=== PATIENT | male | born 1945 | race Caucasian/White ===

== ENCOUNTER 2019-10-17 09:59 | Inpatient (IN) | payer MEDICARE, OTHER, SELFPAY ==
[2019-10-17] VITALS (29 sets, daily range): BP systolic 80–128; BP diastolic 63–99; PULSE 68–94; RESP 18–39; TEMP 36.1–37.2; O2SAT 58–100
--- NOTE | ~2019-10-17 | US_ITS ---
EXAMINATION: US carotid duplex BI DATE: 10/18/2019 17:16 INDICATION: Syncope. TECHNIQUE: Grayscale, color Doppler, and pulsed Doppler images of the cervical carotid arteries were obtained. The degree of vessel stenosis is placed in one of the following categories: normal, <50%, 5 0-69%, >=70% but less than near-occlusion, near-occlusion, or total occlusion. Note that percent sten osis relative to normal distal artery lumen diameter is indirectly measured from velocity measurement s as described by Rodo, et al. Radiology 2003; 229:340-346. COMPARISON: None. FINDINGS: Cardiac arrhythmia is present. RIGHT: The right common carotid artery (CCA) peak systolic velocity (PSV) is 93 cm/s. The right internal car otid artery (ICA) PSV is 56 cm/s. The right ICA end-diastolic velocity (EDV) is 12 cm/s. The right IC A/CCA PSV ratio is 0.6. Grayscale and color Doppler images yield an estimate of <50% diameter reducti on from minimal plaque in the ICA. The external carotid artery (ECA) PSV is 75 cm/s. There is antegra de flow in the right vertebral artery. LEFT: The left CCA PSV is 79 cm/s. The left ICA PSV is 57 cm/s. The left ICA EDV is 16 cm/s. The left ICA/C CA PSV ratio is 0.7. Grayscale and color Doppler images yield an estimate of <50% diameter reduction from minimal plaque in the ICA. The ECA PSV is 113 cm/s. There is antegrade flow in the left vertebra l artery. IMPRESSION: 1. <50% stenosis in the right internal carotid artery. 2. <50% stenosis in the left internal carotid artery. 3. Cardiac arrhythmia is present. Correlate with EKG. Reviewed, dictated and finalized at location A.
--- NOTE | ~2019-10-17 | XR_ITS ---
EXAMINATION: XR chest 1V portable DATE: 10/17/2019 10:34 INDICATION: Shortness of breath. TECHNIQUE: A single frontal view of the chest was obtained. COMPARISON: Chest 2 views 06/27/2018 FINDINGS: Lung volumes are small, which is chronic. There is a diffuse coarse interstitial pattern in the lungs, left worse than right. No pleural effusion or pneumothorax. The heart size is normal. IMPRESSION: 1. Worsened diffuse lung disease, likely chronic interstitial lung disease with superimposed findings of acute exacerbation versus pulmonary edema or pneumonia. Reviewed, dictated and finalized at location A. IMPRESSION: 1. Worsened diffuse lung disease, likely chronic interstitial lung disease with superimposed findings of acute exacerbation versus pulmonary edema or pneumoni a.
--- NOTE | ~2019-10-17 | CT_ITS ---
EXAMINATION: CTA chest DATE: 10/18/2019 17:33 INDICATION: Hypoxia TECHNIQUE: Computed tomographic angiography (CTA) of the chest was performed without and with 100 mL Omnipaque-350 intravenous contrast. Volume-rendered 3D-reconstructions of the aorta and large arterie s were constructed by the technologist on a separate workstation. The dose-length product was 988 mGy -cm. COMPARISON: Chest radiograph dated 10/17/2019 and 06/27/2018 FINDINGS: Good contrast opacification of the pulmonary arteries. There is streak artifact from dense contrast i n the superior vena cava as well as mild to moderate respiratory motion artifact which limits sensiti vity for assessment of pulmonary embolism in the smaller subsegmental pulmonary arteries. No pulmonar y embolism. Chronically small lung volumes with coarse irregular interstitial pattern with peripheral and basilar predominance. There is also diffuse bronchiectasis throughout both lungs. Diffuse ground glass opacities throughout both lungs with a few small regions of more lucent subsegmental air trappi ng related to small airway disease. Tiny bilateral pleural effusions along the major fissures. Mild c ardiomegaly. Thoracic aorta is normal in caliber with no dissection. Enlargement of the central pulmo nary arteries consistent with pulmonary arterial hypertension. Right hilar and mediastinal lymphadeno rajni which is likely reactive. 5.9 cm right renal cyst. Severe lower cervical and lower thoracic spo ndylosis. Chronic anterior wedging with 20% anterior vertebral body height loss at T7 and T8. IMPRESSION: 1. No pulmonary embolism. 2. Chronic diffuse bilateral lung disease with bronchiectasis and decreased lung volumes which could represent chronic interstitial lung disease with usual interstitial pneumonia (UIP) or nonspecific in terstitial pneumonia (NSIP) pattern. Superimposed pulmonary edema or less likely pneumonia not exclud able. 3. Cardiomegaly and enlarged central pulmonary arteries, the latter consistent with pulmonary hyperte nsion likely related to chronic interstitial lung disease. 4. Likely reactive mild mediastinal and bilateral hilar lymphadenopathy. Reviewed, dictated and finalized at location A. IMPRESSION: 1. No pulmonary embolism. 2. Chronic diffuse bilateral lung disease with bronchiectasis and decreased josee g volumes which could represent chronic interstitial lung disease with usual in terstitial pneumonia (UIP) or nonspecific interstitial pneumonia (NSIP) pattern . Superimposed pulmonary edema or less likely pneumonia not excludable. 3. Cardiomegaly and enlarged central pulmonary arteries, the latter consistent with pulmonary hypertension likely related to chronic interstitial lung disease . 4. Likely reactive mild mediastinal and bilateral hilar lymphadenopathy.
--- NOTE | ~2019-10-17 | US_ITS ---
EXAMINATION: US venous doppler [facility] DATE: 10/17/2019 16:09 INDICATION: Lower limb swelling and erythema. TECHNIQUE: Grayscale ultrasound images without and with compression and Doppler ultrasound images of the bilateral lower extremity veins were obtained. COMPARISON: None. FINDINGS: The visualized portions of right common femoral vein, profunda (deep) femoral vein, femoral vein, pop liteal vein, posterior tibial veins, peroneal veins, gastrocnemius vein and greater saphenous vein ou tflow are patent. The visualized portions of left common femoral vein, profunda femoral vein, femoral vein, popliteal v ein, posterior tibial veins, peroneal veins, gastrocnemius vein and greater saphenous vein outflow ar e patent. IMPRESSION: 1. No deep venous thrombosis in either lower limb. Reviewed, dictated and finalized at location A.
--- NOTE | ~2019-10-17 | XR_ITS ---
XR chest 1V portable 10/23/2019 13:47 Indication: Shortness of breath. Procedure: AP portable chest Comparison: Comparison to multiple prior studies sequentially, with oldest reviewed study dated 06/27. Findings: Extensive mixed interstitial and airspace disease unchanged. Stable cardiomediastinal silho uette. No pleural effusion or pneumothorax. No acute osseous abnormality. Impression: 1: Stable extensive mixed interstitial and airspace disease dating back to 06/27/2018. Findings most c ompatible with chronic interstitial fibrosis with possible superimposed chronic interstitial edema or atypical pneumonia. Reviewed, dictated and finalized at location A. Impression: 1: Stable extensive mixed interstitial and airspace disease dating back to 06/27. Findings most compatible with chronic interstitial fibrosis with possibl e superimposed chronic interstitial edema or atypical pneumonia.
--- NOTE | ~2019-10-17 | US_ITS ---
EXAMINATION: US abdomen limited DATE: 10/25/2019 08:08 INDICATION: Splenomegaly TECHNIQUE: Multiple grayscale and Doppler ultrasound images of the left upper quadrant of the abdomen were obtained. COMPARISON: None FINDINGS/IMPRESSION: Normal spleen measuring 7.3 cm in maximal length Reviewed, dictated and finalized at location A.
--- NOTE | ~2019-10-17 | CT_ITS ---
EXAMINATION:CT chest high resolution wo co DATE: 10/24/2019 15:01 INDICATION: Acute respiratory failure. TECHNIQUE: Computed tomography (CT) of the chest was performed without intravenous contrast. Automate d exposure control and iterative reconstruction technique were employed. The dose-length product (DLP ) was 518.86 mGy-cm. COMPARISON: Chest CT 10/18/2019 FINDINGS: The lung volumes are small. The lungs demonstrate widespread groundglass opacities and sept al thickening with a peripheral predominance. There is bronchiectasis in all lobes with an inferior p redominance. There are scattered areas of air trapping in the lungs. No pleural effusion. The heart d emonstrates right atrial and right ventricular enlargement. No pericardial effusion. The central pulm onary arteries are enlarged, consistent with pulmonary arterial average dimension. There is mild medi astinal and bilateral hilar lymphadenopathy, likely reactive. There are cysts in the kidneys measurin g up to 4.7 cm on the right. There is severe cervical and thoracic spondylosis. There is chronic ante rior wedging of T7 and T8 vertebral bodies. IMPRESSION: 1. Severe chronic interstitial lung disease in a pattern of usual interstitial pneumonia (UIP) versus nonspecific interstitial pneumonia (NSIP), stable from 10/18/2019. 2. Mild mediastinal and bilateral hilar lymphadenopathy, likely reactive. 3. Right atrial and right ventricular enlargement of the heart. Reviewed, dictated and finalized at location A. IMPRESSION: 1. Severe chronic interstitial lung disease in a pattern of usual interstitial pneumonia (UIP) versus nonspecific interstitial pneumonia (NSIP), stable from . 2. Mild mediastinal and bilateral hilar lymphadenopathy, likely reactive. 3. Right atrial and right ventricular enlargement of the heart.
--- NOTE | 2019-10-17 10:00 | ECG_ITS ---
Measurements Intervals [place] Rate: 97 P: 39 [place]: 173 QRS: 116 QRSD: 98 T: -18 QT: 334 QTc: 425 Interpretive Statements SINUS RHYTHM RIGHT AXIS DEVIATION POSSIBLE LEFT ATRIAL ENLARGEMENT INCOMPLETE RIGHT BUNDLE BRANCH BLOCK BORDERLINE ST-T WAVE ABNORMALITY- ANTEROLAT/INF LEADS BORDERLINE ECG Electronically Signed On 10-17-2019 11:28:01 CDT by Jace Fitzgerald D.O.
--- NOTE | 2019-10-17 10:19 | ED.SOB ---
HPI - SOB/Dyspnea General Chief Complaint: Shortness of Breath/Dyspnea Stated Complaint: FILLING UP WITH FLUID Time Seen by Provider: 10/17/19 10:08 History of Present Illness HPI Narrative: History limited by poor historian. He reports chronic shortness of breath and LE edema. Both of these haveen worse recently. HE says that the swelling in his legs is painful and feels like his legs are going to explode. It does improve with elevation. The SOB is constant. He says that he probably has CHF, he is not sure . His PCP retired and he has not seen a physician or taken any medications for a long time. During triage he was noted to have an oxygen saturation of 83% on 4L. No fever, sick contacts, CP. Related Data Allergies Allergy/AdvReac Type Severity Reaction Status Date / Time No Known Allergies Allergy Verified 10/17/19 10:02 Review of Systems Review of Systems: All systems reviewed & are unremarkable except as noted in HPI and below Constitutional: Constitutional: Denies chills, Denies fever(s) and Denies weakness ENT: Denies nasal congestion Cardiovascular: Cardiovascular: Denies chest pain Respiratory: Respiratory: Reports dyspnea Gastrointestinal: Gastrointestinal: Denies abdominal pain Neurologic: Denies numbness and Denies weakness Endocrine: Endocrine: Denies polydipsia and Denies polyuria [facility] Family History Family History Mother Unknown family medical history Father Congestive heart failure Social History Social History Gender identity (if verbalized by the patient): Male Exam Const: General: alert and ill appearing acutely and chronically Orientation/consciousness: patient oriented x3 Other: moderate distress HENMT: Head: normal to inspection Eyes: Pupils: Equal, round and reactive pupils present Resp: Effort & Inspection: tachypneic Auscultation: crackles Cardio: Rate: regular rate Rhythm: regular rhythm GI: GI Palp: Yes Soft to palpation and No Tenderness to palpation present (GI) Skin: Other: hyperemia to anterior lower leg bilaterally. Neuro: General: patient oriented x3, moves all extremities and CN's II-XI intact bilaterally Speech: normal speech Extrem: General: edema bilateral (3+ PITTING EDEMA) Course Vital Signs Vital signs: Vital Signs Pulse Rate 94 10/17/19 10:02 Respiratory Rate 39 H 10/17/19 10:02 Blood Pressure 128/99 H 10/17/19 10:02 Pulse Oximetry 83 L 10/17/19 10:02 Pulse Rate 71 10/17/19 14:00 Respiratory Rate 30 H 10/17/19 12:31 Blood Pressure 112/82 10/17/19 12:30 Pulse Oximetry 99 10/17/19 12:31 MDM - SOB/Dyspnea MDM Narrative Medical decision making narrative: He has a complicated presentation with both indications of CHF/fluid overload and poor perfusion. He may require further evaluation before initiating diuresis or hydrating. Will admit for respiratory failure. Differential Diagnosis Differential diagnosis: Likely acute exacerbation of chronic obstructive airways disease, congestive heart failure, community acquired pneumonia and other (COVD, cellulitis) Medical Records Attestation: I reviewed the patient's medical records. Lab Data Attestation: I reviewed the patient's lab results. Result diagrams: 10/17/19 10:14 10/17/19 10:16 Labs: Lab Results 10/17/19 10/17/19 10/17/19 Range/Units 10:14 10:14 10:16 WBC 8.9 (4.5-10.0) K/mm3 RBC 5.32 (4.6-6.20) M/mm3 Hgb 19.4 H (14.0-18.0) g/dL Hct 57.3 H (42.0-52.0) % MCV 107.7 H (80-100) fl MCH 36.5 H (26-34) pg MCHC 33.9 (32-36) g/dl RDW 16.9 H (11.5-14.5) % Plt Count 173 (150-375) k/mm3 MPV 10.7 H (7.4-10.4) fl Immature Gran % (Auto) 0.3 (0-0.5) % Neut % (Auto) 66.0 (45.5-73.1) % Lymph % (Auto) 22.5 (18.3-44.2) % [place] % (Auto) 8.9 H (2.6-8.5) % Eos % (Auto)
[2019-10-17 11:02] LABS: Alanine Aminotransferase 40 U/L (4-50); Albumin Level 3.7 g/dL (3.5-5.1); Alkaline Phosphatase 136 U/L (38-126); Aspartate Amino Transferase 35 U/L (17-59); Blood Urea Nitrogen 28 mg/dL (9-20); Calcium 8.5 mg/dL (8.4-10.2); Carbon Dioxide 18 mmol/L (22-30); Chloride 106 mmol/L (98-107); Estimated CRCL calculation 52 ml/min; Estimated Glomerular Filt Rate 59; Glucose 117 mg/dL (75-110); NT Pro B Type Natriuretic Pept 5460 PG/ML (5-100); Potassium 4.5 mmol/L (3.4-5.0); Sodium 135 mmol/L (137-145); Troponin I 0.015 ng/mL (0.000-0.034)
[2019-10-17 11:08] LABS: Lactic Acid Reflex 2.4 mmol/L (0.7-2.1)
[2019-10-17 11:14] LABS: CRP 2.4 mg/dL (<1.0)
[2019-10-17 11:18] LABS: Hematocrit 57.3 % (42.0-52.0); Hemoglobin 19.4 g/dL (14.0-18.0); Red Blood Count 5.32 M/mm3 (4.6-6.20); White Blood Count 8.9 K/mm3 (4.5-10.0)
[2019-10-17 11:19] LABS: Mean Corpuscular HGB Conc 33.9 g/dl (32-36); Mean Corpuscular Hemoglobin 36.5 pg (26-34); Mean Corpuscular Volume 107.7 fl (80-100); Mean Platelet Volume 10.7 fl (7.4-10.4); Platelet Count Result 173 k/mm3 (150-375); Red Cell Distribution Width 16.9 % (11.5-14.5)
[2019-10-17 11:20] LABS: Immature Granulocyte Percent A 0.3 % (0-0.5)
[2019-10-17 11:21] LABS: Basophils Percent Auto 0.4 % (0.2-1.2); Eosinophils Percent Auto 1.9 % (0-4.4); Immature Granulocyte Absolute 0.03 K/mm3 (0.00-0.031); Lymphocytes Percent Auto 22.5 % (18.3-44.2); Monocytes Percent Auto 8.9 % (2.6-8.5)
[2019-10-17 11:22] LABS: Eosinophils Absolute Auto 0.2 K/mm3 (0-0.3); Monocytes Absolute Auto 0.8 K/mm3 (0.1-0.6); Neutrophils Absolute Auto 5.9 K/mm3 (1.3-6.7)
[2019-10-17 12:46] LABS: Bilirubin,Total 2.5 mg/dL (0.2-1.3)
[2019-10-17 13:35] LABS: Reflex Lactic Acid Yes or No Add Lactic
[2019-10-17 14:33] LABS: Alveolar/Arterial O2 Gradient 155.9 mmHg; Base Excess ABG -2.8 mEq/l (+/-2.0); Carboxyhemoglobin 0.8 % THb (0-2.0); Fractional Inspired Oxygen 36 %; HCO3 ABG 21.5 mEq/l (22.0-26.0); Methemoglobin ABG 0.7 %THb (0-1.5); Modified Allen's Test Pass; Oxygen Content ABG 25.8 %vol (16.0-22.0); Oxygen Saturation ABG 96.6 % (95.0-100.0); Oxyhemoglobin 94.6 % THb (90.0-100.0); PCO2 ABG 36.7 mmHg (35.0-45.0); PO2 ABG 87.1 mmHg (80.0-100.0); PO2 FiO2 Ratio Arterial Blood 2.18 %; Reduced Hemoglobin 3.9 %THb (0-5.0); Site Drawn RIGHT RADIAL; Total Hemoglobin 19.4 g/dL (12.0-18.0); pH ABG 7.386 (7.350-7.450)
[2019-10-17 14:34] LABS: Device NASAL CANNULA
--- NOTE | 2019-10-17 15:50 | PM.IMHP ---
H&P: HPI History of Present Illness Chief complaint: Shortness of breath and lower leg swelling. Narrative: Carmelo Argueta is a 73-year-old male, occasional cigar smoker, who presented to the emergency department earlier this morning for evaluation of shortness of breath and lower leg swelling. He admits that he does not go to the doctor very often and he reports no known significant medical history however he was told he probably has underlying COPD but he declined to try inhalers at that time. For quite some time he has had dyspnea on exertion, and it has gotten to the point where he is pretty much homebound as he gets extremely winded when even trying to walk up a flight of steps at home. Over the past several weeks, he has developed increasing lower extremity edema, now to the thighs and progression in his chronic shortness of breath. He frequently has a cough, but over the last several weeks his cough has been productive of clear sputum which he assumes is due to sinus congestion and postnasal drip. He mentions that about a week ago while coughing that he had a syncopal episode where he fell onto his face, sustaining a cut to his lip and underneath of his eyes. With further questioning, he denies forceful coughing or even coughing for quite some time prior to that episode. As mentioned, he rarely leaves the home. His does the shopping, and she has not had exposure to sick contacts and she herself has been feeling okay. He has no known history of chronic respiratory failure and has not noted cyanosis prior to the last couple of days. He denies confusion. He has had mild chills but denies subjective fever and sweats. No headache. He denies chest pain, pleuritic pain, and racing heart. He sleeps on his side and denies overt orthopnea but it sounds as though he has occasional paroxysmal nocturnal dyspnea. He is uncertain if he snores but he reports being fatigued a lot of the time. He has no known history of obstructive sleep apnea. He denies hemoptysis. No history of venous thromboembolism. Review of Systems Review of Systems: Narrative: Twelve systems were reviewed with pertinent positives and negatives as per HPI. Some chills but no documented fever or sweats. Denies headache. No dizziness or lightheadedness. He has had sinus congestion and rhinorrhea. No otalgia or odynophagia. He is uncertain if he has had any change in weight. No known history of cardiac disease. He has been told he likely has COPD but has refused inhalers in the past. No dysphagia or concerns for aspiration. He denies nausea, vomiting, and diarrhea. No dysuria. No history of venous thromboembolism. No confusion. Except as documented, all other systems were reviewed and are negative. [facility] Past Medical History Medical History (Updated 10/17/19 @ 19:15 by Lindsey Banks PA-C) Chronic obstructive pulmonary disease Surgical History Surgical History (Updated 10/17/19 @ 18:48 by Lindsey Banks PA-C) History of appendectomy Family History Family History Mother Unknown family medical history Father Congestive heart failure Social History Social History (Updated 10/17/19 @ 18:50 by Lindsey Banks PA-C) Social History: The patient lives in [place] with his . They have 3 children. 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 He smokes cigar occasionally. He no longer drinks alcohol. No illicit substance use. He designates his as his surrogate decision maker and he wishes to be a full code, but would not want to be on life support if outlook is grim. Spiritual care concerns: No Meds Home Medications and Allergies Allergies Allergy/AdvReac Type Severity Reaction Status Date / Time No Known Allergies Allergy Verified 10/17/19 10:02 Vital Signs Vital Signs - 24 hr 10/17/19 10:02 10/17/19 10:05 10/17/19 10:08 Temperature Pulse Rate 9
[2019-10-17 15:52] LABS: Bilirubin,Total 2.2 mg/dL (0.2-1.3); Lactate Dehydrogenase 658 U/L (313-618)
[2019-10-17 16:05] LABS: Troponin I 0.014 ng/mL (0.000-0.034)
[2019-10-17 16:29] LABS: Iron 142 ug/dL (49-181)
--- NOTE | 2019-10-17 16:30 | ADMGEN ---
This patient, Carmelo Argueta, was admitted to Intensive Care Unit-4. Patient/family oriented to hospital policies and general routines including ID bracelet, bed and alarms, visiting hours, pain management, procedures, bathroom and other care routines, personal items, smoking policy, room service/diet, and visiting hours. Valuables list has been completed. Information on how to activate the Rapid Response Team has been discussed. Patient/Family are encouraged to report perceived risks to care and to ask questions if they do not understand what they are told or what they should do.
[2019-10-17 16:39] LABS: Percent Iron Saturation 39 % (20-50)
[2019-10-17 16:59] LABS: Folic Acid 18.9 ng/mL (2.76->20)
[2019-10-17 17:55] LABS: Free T4 Free Thyroxine Reflex 1.08 ng/dL (0.78-2.19)
[2019-10-17 18:38] LABS: Total Triiodothyronine (T3) 0.73 NG/ML (0.97-1.69)
[2019-10-17] MEDS: ENOXAPARIN 100 MG/ML SYRINGE 90 MG SUB-Q (20:33)
[2019-10-17] MEDS: FUROSEMIDE INJ 40 MG/4 ML VIAL 20 MG IV PUSH (20:34)
[2019-10-17] MEDS: methylPREDNISolone SOD SUCC 125 MG VIAL IV PUSH (20:34)
[2019-10-17 22:58] LABS: Lactic Acid 1.6 mmol/L (0.7-2.1)
[2019-10-17 23:10] LABS: Troponin I 0.012 ng/mL (0.000-0.034)
[2019-10-18] VITALS (18 sets, daily range): BP systolic 98–120; BP diastolic 64–81; PULSE 67–84; RESP 17–31; TEMP 35.8–37.2; O2SAT 72–97; BMI 28.9
[2019-10-18] MEDS: methylPREDNISolone SOD SUCC 125 MG VIAL 60 MG IV PUSH ×5 (00:33→23:43)
--- NOTE | 2019-10-18 01:02 | PC.NURSE ---
6 hour Troponin and lactic acid ordered at 1450 on 10/17/2019 by JULIO Roberson resulted after 4 attempts. Day shift RN unable to complete order so I stuck this patient 4 separate times, sent 3 different tubes of blood down to lab, and each time I sent the specimens to lab they were hemolyzed. Able to get results on the 4th try.
[2019-10-18 05:15] LABS: Basophils Percent Auto 0.1 % (0.2-1.2); Hematocrit 52.8 % (42.0-52.0); Hemoglobin 17.7 g/dL (14.0-18.0); Immature Granulocyte Absolute 0.02 K/mm3 (0.00-0.031); Immature Granulocyte Percent A 0.2 % (0-0.5); Lymphocytes Absolute Auto 0.59 K/mm3 (0.9-3.2); Mean Corpuscular HGB Conc 33.5 g/dl (32-36); Mean Corpuscular Hemoglobin 36.4 pg (26-34); Mean Corpuscular Volume 108.6 fl (80-100); Mean Platelet Volume 10.8 fl (7.4-10.4); Monocytes Absolute Auto 0.1 K/mm3 (0.1-0.6); Monocytes Percent Auto 0.9 % (2.6-8.5); Neutrophils Absolute Auto 7.8 K/mm3 (1.3-6.7); Neutrophils Percent Auto 91.8 % (45.5-73.1); Platelet Count Result 164 k/mm3 (150-375); Red Blood Count 4.86 M/mm3 (4.6-6.20); Red Cell Distribution Width 15.9 % (11.5-14.5); White Blood Count 8.5 K/mm3 (4.5-10.0)
[2019-10-18 05:36] LABS: Blood Urea Nitrogen 23 mg/dL (9-20); CRP 2.7 mg/dL (<1.0); Carbon Dioxide 22 mmol/L (22-30); Chloride 105 mmol/L (98-107); Estimated CRCL calculation 58 ml/min; Estimated Glomerular Filt Rate > 60; Glucose 151 mg/dL (75-110); Lactate Dehydrogenase 584 U/L (313-618); Magnesium 1.7 mg/dL (1.6-2.3); Potassium 4.4 mmol/L (3.4-5.0); Sodium 135 mmol/L (137-145)
--- NOTE | 2019-10-18 06:00 | ECHO_ITS ---
Patient Info Name: Carmelo Argueta Age: 73 years : 1945 Gender: Male Ht: 66 in Wt: 200 lbs BSA: 2.09 m2 HR: 80 bpm BP: 99 / 64 mmHg Technical Quality: Good Exam Date: 10/18/2019 1:59 PM Exam Location: [facility] Patient Status: Inpatient Admit Date: 10/17/2019 Staff Ordering Physician: Rodo Hughes MD Manager Academic: Serafin Meyers, HEIDY, RT Attending Provider: Luis Desir MD Referring Physician: Ellen ORDAZ; Exam Type: CA echo doppler color flow Study Info Indications J96.91 - Respiratory failure, unspecified with hypoxia Complete two-dimensional, color flow and Doppler transthoracic echocardiogram is performed. Summary 1. Left ventricular chamber dimension is normal. 2. D shape septum in systol and diastole which suggests both right ventricular pressure and volume overload. 3. Left ventricular systolic function is normal, estimated at 55-60%. 4. Left ventricular septal wall motion is abnormal with septal motion related to bundle branch block. 5. The left ventricular diastolic function is grade I diastolic dysfunction. 6. E/e' 7 is not elevated. 7. Global longitudinal strain is normal at -17.9%. 8. Right ventricular systolic function is severely reduced and with TAPSE 1.4 cm.. 9. Right ventricular chamber dimension is severely enlarged. 10. Right atrial chamber dimension is moderately enlarged. 11. There is trace aortic valve regurgitation. 12. There is moderate tricuspid valve regurgitation. 13. Severe pulmonary hypertension, estimated pulmonary arterial systolic pressure is 60 mmHg. 14. Dilated inferior vena cava with <50% collapse upon inspiration consistent with significantly elevated right atrial pressure, 15 mmHg. Left Ventricle E/e' 7 is not elevated. Global longitudinal strain is normal at -17.9%. D shape septum in systol and diastole which suggests both right ventricular pressure and volume overload. Left ventricular chamber dimension is normal. Left ventricular systolic function is normal, estimated at 55-60%. Left ventricular septal wall motion is abnormal with septal motion related to bundle branch block. The left ventricular diastolic function is grade I diastolic dysfunction. Right Ventricle Right ventricular systolic function is severely reduced and with TAPSE 1.4 cm.. Right ventricular chamber dimension is severely enlarged. Left Atria Left atrial chamber dimension is normal. Right Atria Right atrial chamber dimension is moderately enlarged. Aortic Valve The aortic valve is trileaflet. There is no aortic valve stenosis. There is trace aortic valve regurgitation. Pulmonic Valve There is no pulmonic regurgitation. Mitral Valve There is no mitral valve stenosis. There is no mitral valve regurgitation. Tricuspid Valve There is moderate tricuspid valve regurgitation. Severe pulmonary hypertension, estimated pulmonary arterial systolic pressure is 60 mmHg. Pericardium/Pleural There is no pericardial effusion. Inferior Vena Cava Dilated inferior vena cava with <50% collapse upon inspiration consistent with significantly elevated right atrial pressure, 15 mmHg. Aorta The aortic root size at the sinus of Valsalva is normal. Left Ventricular Outflow Tract Name Value Normal LVOT 2D
[2019-10-18] MEDS: FUROSEMIDE INJ 40 MG/4 ML VIAL 20 MG IV PUSH ×2 (08:26→17:58)
[2019-10-18] MEDS: ENOXAPARIN 40 MG/0.4 ML SYRINGE SUB-Q (08:26)
[2019-10-18 12:55] LABS: SARS-CoV-2 RNA PCR Negative
--- NOTE | 2019-10-18 14:45 | PC.NURSE ---
Addendum entered by Stacy Jose RN 10/18/19 15:13: Pt transferred to room 204 Original Note: Pt transferred via wheelchair with oxygen on. No issues noted. Belongs checked and all items transferred with patient. Report called to DRU Lora @ 1199
--- NOTE | 2019-10-18 16:24 | PM.IMPN ---
Progress Note: A&P Assessment and Plan (1) Acute respiratory failure with hypoxia: Code(s): J96.01 - Acute respiratory failure with hypoxia Status: Acute Assessment and Plan: Chest x-ray shows chronic interstitial lung disease with superimposed finding of pneumonia and/or pulmonary edema. Covid is negative Pt needs to have CT chest and echocardiogram (2) Chronic obstructive pulmonary disease: Code(s): J44.9 - Chronic obstructive pulmonary disease, unspecified Status: Acute Assessment and Plan: He has been started on Solu-Medrol with albuterol and ipratroprium MDIs if needed. Empiric azithromycin and ceftriaxone ordered for possible pneumonia. Awaiting DR Gonzalez consultation for chronic intersitial lung disease (3) Congestive heart failure: Code(s): I50.9 - Heart failure, unspecified Status: Acute Assessment and Plan: Patient is edematous on admission He will be diuresed with strict I/O and daily weights. Echocardiogram awaiting (4) Syncope: Code(s): R55 - Syncope and collapse Status: Acute Assessment and Plan: Pt is on Lovenox 1 milligram/kilogram, pending CTA of the chest tomorrow. Subjective Date/time seen: 10/18/19 16:24 Interval history: 73-year-old male, occasional cigar smoker, who presented to the emergency department earlier this morning for evaluation of shortness of breath and lower leg swelling. Pt seen on the medical floor, states he never had any medical tests before. Pt needs 6-10 liters of oxygen. Transferred out of icu because he was COVID negative. Awaiting echo and CT scan of the chest. Pt is passing alot of urine, presently on the commode. Review of Systems Review of Systems: All systems reviewed & are unremarkable except as noted in HPI and below Cardiovascular: Cardiovascular: Reports leg edema Respiratory: Respiratory: Reports chest congestion, Reports dyspnea and Reports other (SOb pt is on oxygen ) Exam Narrative: Exam Narrative: Temp Pulse Resp BP Pulse Ox 36.1 C L 79 19 103/74 96 10/18/19 12:00 10/18/19 16:00 10/18/19 12:00 10/18/19 12:00 10/18/19 12:00 Pt not fully examined as he is on the commode Objective Data Vital Signs Vital Signs: Vital Signs - 24 hr 10/17/19 17:44 10/17/19 18:00 10/17/19 20:00 Temperature 37.2 C Pulse Rate 76 76 68 Respiratory Rate 18 30 H Blood Pressure 106/81 Pulse Oximetry 94 94 10/17/19 21:26 10/17/19 22:00 10/18/19 00:00 Temperature 37.1 C Pulse Rate 78 75 Respiratory Rate 31 H Blood Pressure 98/64 L Pulse Oximetry 94 97 10/18/19 02:00 10/18/19 04:00 10/18/19 06:00 Temperature 37.2 C Pulse Rate 84 74 69 Respiratory Rate 17 Blood Pressure 99/64 L Pulse Oximetry 93 10/18/19 08:00 10/18/19 08:19 10/18/19 09:07 Temperature 35.8 C L Pulse Rate 67 Respiratory Rate 20 Blood Pressure 107/70 Pulse Oximetry 94 93 91 10/18/19 09:26 10/18/19 10:00 10/18/19 10:57 Temperature Pulse Rate 83 Respiratory Rate Blood Pressure Pulse Oximetry 72 L 93 10/18/19 12:00 10/18/19 14:00 10/18/19 16:00 Temperature 36.1 C L Pulse Rate 77 81 79 Respiratory Rate 19 Blood Pressure 103/74 Pulse Oximetry 96 Intake/Output Intake/Output: Intake & Output 10/15/19 10/16/19 10/17/19 10/18/19 23:59 23:59 23:59 23:59 Intake Total 780 1180 Output Total 250 1350 Balance 530 -170 Meds/Results Medications: Active Medications Generic Name Dose Route Start Last Admin Trade Name Freq PRN Reason Stop Dose Admin Albuterol 2 puff 10/16/
[2019-10-19] VITALS (14 sets, daily range): BP systolic 90–127; BP diastolic 54–76; PULSE 71–92; RESP 20–30; TEMP 36.1–36.9; O2SAT 92–99
[2019-10-19] MEDS: methylPREDNISolone SOD SUCC 125 MG VIAL 60 MG IV PUSH ×3 (06:07→18:03)
[2019-10-19] MEDS: FUROSEMIDE INJ 40 MG/4 ML VIAL 20 MG IV PUSH ×2 (08:31→18:02)
[2019-10-19] MEDS: ENOXAPARIN 40 MG/0.4 ML SYRINGE SUB-Q (08:31)
--- NOTE | 2019-10-19 11:44 | PM.IMPN ---
Progress Note: A&P Assessment and Plan (1) Acute respiratory failure with hypoxia: Code(s): J96.01 - Acute respiratory failure with hypoxia Status: Acute Assessment and Plan: More likely acute on chronic respiratory failure as patient does mention oxygen usually would make him feel better after activity. Still requiring 6-10 L of oxygen. Will quickly desaturate into the 60s with any activity. CTA chest with no pulmonary embolism but chronic diffuse bilateral lung disease and findings suggestive of pulmonary hypertension. Telemetry reviewed on 10/19/2019 with sinus rhythm. Pulmonology has been consulted and appreciate input. Patient reports he is willing to use inhalers of the has not been in the past. Will continue to monitor closely. (2) Chronic obstructive pulmonary disease: Qualifiers: COPD type: unspecified COPD Qualified Code(s): J44.9 - Chronic obstructive pulmonary disease, unspecified Code(s): J44.9 - Chronic obstructive pulmonary disease, unspecified Status: Acute Assessment and Plan: Pulmonology consulted and will discuss after Dr. Gonzalez has had a chance to evaluate patient. Currently on IV Solu-Medrol but no other respiratory treatments. Will hold off on starting any inhalers until pulmonology has had a chance to evaluate. Doubt pneumonia with no fever and normal WBC but will leave IV ceftriaxone and azithromycin until able to be evaluated by pulmonology. Continue oxygen as noted above. (3) Congestive heart failure: Qualifiers: Heart failure type: diastolic Heart failure chronicity: acute on chronic Qualified Code(s): I50.33 - Acute on chronic diastolic (congestive) heart failure Code(s): I50.9 - Heart failure, unspecified Status: Acute Assessment and Plan: Echocardiogram with EF 55-60%, grade 1 diastolic dysfunction right ventricular systolic function severely reduced, severe pulmonary hypertension. Continue IV Lasix at this time. Continue to monitor electrolytes and kidney function. (4) Pulmonary hypertension: Code(s): I27.20 - Pulmonary hypertension, unspecified Status: Acute Assessment and Plan: Severe on echocardiogram. Result of pulmonary issues. Apnea Link ordered but may need to be more stable before able to perform. (5) Bilateral lower extremity edema: Code(s): R60.0 - Localized edema Status: Acute Assessment and Plan: Venous Dopplers of the lower extremities are negative for DVT. Edema secondary to CHF as result of pulmonary disease. (6) Syncope: Qualifiers: Syncope type: unspecified Qualified Code(s): R55 - Syncope and collapse Code(s): R55 - Syncope and collapse Status: Acute Assessment and Plan: No further episodes. Patient reports did have syncope 1 week ago. Suspect this was related to acute on chronic respiratory failure. Carotid Dopplers with less than 50% stenosis bilaterally. CTA chest negative for pulmonary embolism. Will monitor. (7) DVT prophylaxis: Code(s): Z29.9 - Encounter for prophylactic measures, unspecified Status: Acute Assessment and Plan: Lovenox. Time Spent With Patient Time with patient: 15 - 25 minutes Subjective Date/time seen: 10/19/19 11:44 Interval history: Date of Service: 10/19/2019. Admitted with acute on chronic respiratory failure, chronic lung disease. Patient with shortness of breath with minimal exertion. No cough. No chest pain or pressure. No abdominal pain that feels as though ?the wound is knocked out of me? when bending over. Still has swelling in his legs but better than 1 week ago. No headache or dizziness. No nausea or vomiting. Nursing does report patient will quickly desaturate into the 60s with minimal exertion. Review of Systems Constitutional: Constitutional: Denies chills and Denies fever(s) ENT: Denies dysphagia Cardiovascular: Cardiovascular: Denies chest pain
--- NOTE | 2019-10-19 17:51 | PM.CNPUL ---
Assessment and Plan Assessment and plan (1) Acute respiratory failure with hypoxia: Code(s): J96.01 - Acute respiratory failure with hypoxia Status: Acute Assessment and Plan: Likely acute on chronic hypoxemic respiratory failure due to ILD, unspecified type. Has diffuse changes on CT scan, clubbing of fingers and toes, progressive lower extremity edema representing right heart failure, PLAN: - decreased IV steroids to 40 mg IV Q 6 hours - Increase IV Lasix 40 mg Q 6 hours - Change to high flow system from 10 L/min - consider echo with bubble study to evaluate for hypoxemia, although his issue is clearly mostly due to COPD/ILD - add inhaled bronchodilators - will need O2 set up prior to going home - said son bought concentrator online; will need tanks and supplies - ROBERTO testing is indicated, he is not stable enough for it (likely would not be compliant with care) - Add treatment for sinus drainage, has had for years, and this interferes with his sleep at night and breathing in the day time. - check hypersensitivity panel, KRISHNA, histo antigen, Aspergillus titers, IgE. - routine evaluation of swallowing; Aspiration can cause ILD. Start PPI - 20 mg pantoprazole Q day. _ add montelukast, antihistamine and nasal steroids for rhinitis (2) Pulmonary hypertension: Code(s): I27.20 - Pulmonary hypertension, unspecified Status: Acute Assessment and Plan: Severe pulmonary hypertension with an RVSP of 60 mmHg. The most likely cause for this is his severe hypoxemia which is due to COPD and interstitial lung disease. He was not on oxygen at home. Patient has a history of COPD or breathing problems for 5 years but was not on any treatment. While he has been here his oxygen need has increased. He initially was on 4 L with an arterial blood gas that showed adequate oxygenation and normal acid-base status. Now on 10 liters/minute he desaturates briskly to the 68-70% range if he gets up. He require 6 date minutes to recover. He may benefit from a high-flow system to provide more O2. (3) Chronic obstructive pulmonary disease: Qualifiers: COPD type: unspecified COPD Qualified Code(s): J44.9 - Chronic obstructive pulmonary disease, unspecified Code(s): J44.9 - Chronic obstructive pulmonary disease, unspecified Status: Acute Assessment and Plan: I suspect that he has this. He says that he never smoked cigarettes, only cigars and stopped 10 years ago. 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 PFTs are indicated but he is not in good enough shape for this, and cannot take as an out patient if he requires high levels of O2. (4) Chronic shortness of breath: Code(s): R06.02 - Shortness of breath Status: Acute Assessment and Plan: Progressive over 5 years, worse over the last few months as his edema worsened. Exercise tolerance is abysmal, cannot bend over without having to rest (5) ILD (interstitial lung disease): Code(s): J84.9 - Interstitial pulmonary disease, unspecified Status: Acute Assessment and Plan: He has changes on his chest CT Had a large exposure to bird excrement 6 years ago, had acute shortness of breath , cough, other symptoms including the onset of sinus drainage, coughing, gagging on secretions. (6) Cor pulmonale: Code(s): I27.81 - Cor pulmonale (chronic) Status: Acute Assessment and Plan: leg swelling, shortness of breath, pulmonary hypertension, early satiety, weight loss; needs to use O2 to prevent worsening pulmonary hypertension and reduce polycythemia
[2019-10-19] MEDS: BUDESONIDE/FORMOTEROL (*SP) 160-4.5 MCG 6 GM INH 2 PUFF INHALATION (20:03)
[2019-10-19] MEDS: ALBUTEROL SULFATE (*SP) AEROSOL 1 PUFF 2 PUFF INHALATION (20:15)
[2019-10-19] MEDS: FUROSEMIDE INJ 40 MG/4 ML VIAL IV PUSH (20:53)
[2019-10-20] VITALS (19 sets, daily range): BP systolic 91–124; BP diastolic 54–73; PULSE 65–86; RESP 18–30; TEMP 35.9–36.7; O2SAT 92–100
[2019-10-20] MEDS: MONTELUKAST SODIUM 10 MG TABLET PO ×2 (00:18→20:33)
[2019-10-20] MEDS: methylPREDNISolone SOD SUCC 40 MG VIAL IV PUSH ×5 (00:19→23:30)
[2019-10-20] MEDS: FLUTICASONE PROPIONATE 0.05% NA SPR 16 GM BTL (*BKC) 1 SPRAY NASAL ×3 (00:21→20:33)
[2019-10-20 04:38] LABS: Blood Urea Nitrogen 26 mg/dL (9-20); Carbon Dioxide 31 mmol/L (22-30); Chloride 97 mmol/L (98-107); Estimated CRCL calculation 74 ml/min; Estimated Glomerular Filt Rate > 60; Glucose 124 mg/dL (75-110); Potassium 3.2 mmol/L (3.4-5.0); Sodium 133 mmol/L (137-145)
[2019-10-20 06:14] LABS: Magnesium 1.5 mg/dL (1.6-2.3)
[2019-10-20] MEDS: POTASSIUM CHLORIDE 20 MEQ TABLET 40 MEQ PO (06:18)
[2019-10-20] MEDS: FUROSEMIDE INJ 40 MG/4 ML VIAL IV PUSH ×4 (06:20→23:30)
[2019-10-20] MEDS: MAGNESIUM SULF 1 GM/D5W 100 ML 1 GM/100 ML BAG IVPB (06:50)
[2019-10-20] MEDS: BUDESONIDE/FORMOTEROL (*SP) 160-4.5 MCG 6 GM INH 2 PUFF INHALATION ×2 (08:16→20:06)
--- NOTE | 2019-10-20 09:26 | PM.IMPN ---
Progress Note: A&P Assessment and Plan (1) Acute respiratory failure with hypoxia: Code(s): J96.01 - Acute respiratory failure with hypoxia Status: Acute Assessment and Plan: More likely acute on chronic respiratory failure. Pulmonology consulted and appreciate input. CTA chest with no pulmonary embolism but chronic diffuse bilateral lung disease and findings suggestive of pulmonary hypertension. Discussed with Dr. Gonzalez yesterday. Continue IV steroids and IV Lasix. Will leave IV ceftriaxone and azithromycin in place for now. Now on Symbicort and montelukast. Also on high-flow oxygen at 50% with FiO2 88. Symptomatically feels better today. Urine Histoplasma antigen and hypersensitivity pneumonitis panels pending. Will eventually need additional evaluation when more stable. Will continue to monitor in IMU. Patient now DNR status. (2) Chronic obstructive pulmonary disease: Qualifiers: COPD type: unspecified COPD Qualified Code(s): J44.9 - Chronic obstructive pulmonary disease, unspecified Code(s): J44.9 - Chronic obstructive pulmonary disease, unspecified Status: Acute Assessment and Plan: Pulmonology consulted and appreciate input as noted above. IV steroids decreased. Remains on IV antibiotics today but hopefully will be able to discontinue if some of additional testing is negative. Now on Symbicort and montelukast. High-flow oxygen therapy in place. Will need home oxygen evaluation when ready for discharge. (3) Congestive heart failure: Qualifiers: Heart failure type: diastolic Heart failure chronicity: acute on chronic Qualified Code(s): I50.33 - Acute on chronic diastolic (congestive) heart failure Code(s): I50.9 - Heart failure, unspecified Status: Acute Assessment and Plan: Echocardiogram with EF 55-60%, grade 1 diastolic dysfunction right ventricular systolic function severely reduced, severe pulmonary hypertension. Diuresing with IV Lasix. In lower extremities much improved. Venous Dopplers of the lower extremities negative for DVT. Continue IV Lasix at this time. Continue to monitor electrolytes and kidney function. (4) Hypokalemia: Code(s): E87.6 - Hypokalemia Status: Acute Assessment and Plan: Potassium 3.2 this morning with oral replacement given. Also replacing magnesium. Telemetry reviewed on 10/20/2019 with short run of SVT earlier this morning. Otherwise in regular sinus rhythm. Will continue to monitor. Replace potassium as needed. (5) Hypomagnesemia: Code(s): E83.42 - Hypomagnesemia Status: Acute Assessment and Plan: Magnesium 1.5 this morning with IV replacement given. Will continue to monitor and replace as needed. (6) Pulmonary hypertension: Code(s): I27.20 - Pulmonary hypertension, unspecified Status: Acute Assessment and Plan: Severe on echocardiogram. Result of pulmonary issues. Apnea Link ordered but will need to be more stable for this evaluation. (7) ILD (interstitial lung disease): Code(s): J84.9 - Interstitial pulmonary disease, unspecified Status: Acute Assessment and Plan: CT scan as noted above. Pulmonology following. Continue respiratory treatments as noted above. (8) Cor pulmonale: Code(s): I27.81 - Cor pulmonale (chronic) Status: Acute Assessment and Plan: As evidenced by other findings. Remains on oxygen as noted above. Pulmonology following. (9) Polycythemia secondary to hypoxia: Code(s): D75.1 - Secondary polycythemia Status: Acute Assessment and Plan: Hemoglobin 19.4 on admission. Repeat hemoglobin 17.7. Will follow periodically. (10) Rhinitis: Qualifiers: Rhinitis type: unspecified Qualified Code(s): J31.0 - Chronic rhinitis Code(s): J31.0 - Chronic rhinitis Status: Acute Assessment and Plan: Now on Flonase and loratadine with improv
[2019-10-20] MEDS: MAGNESIUM SULF 2 GM/WATER 50ML 2 GM/50 ML BAG IVPB (09:28)
[2019-10-20] MEDS: PANTOPRAZOLE SOD SESQUIHYDRATE 20 MG TAB PO (09:29)
[2019-10-20] MEDS: ENOXAPARIN 40 MG/0.4 ML SYRINGE SUB-Q (09:29)
[2019-10-20] MEDS: LORATADINE 10 MG TABLET PO (09:29)
--- NOTE | 2019-10-20 14:41 | PM.PNPUL ---
Progress Note: A&P Assessment and Plan (1) Acute respiratory failure with hypoxia: Code(s): J96.01 - Acute respiratory failure with hypoxia Status: Acute Assessment and Plan: Likely acute on chronic hypoxemic respiratory failure due to ILD, unspecified type. Has diffuse changes on CT scan, clubbing of fingers and toes, progressive lower extremity edema representing right heart failure, plan: - further decrease steroids to 40 mg IV Q 6 hours - continue IV Lasix 40 mg Q 6 hours - continue high flow system from 10 L/min - continue inhaled bronchodilators - will need O2 set up prior to going home - said son bought concentrator online; will need tanks and supplies - ROBERTO testing is indicated, he is not stable enough for it (likely would not be compliant with care) - Added treatment for sinus drainage, has had for years, and this interferes with his sleep at night and breathing in the day time. - pending labs: hypersensitivity panel, KRISHNA, histo antigen, Aspergillus titers, IgE. - routine evaluation of swallowing; Aspiration can cause ILD. Start PPI - 20 mg pantoprazole Q day. -continue montelukast, antihistamine and nasal steroids for rhinitis (2) Pulmonary hypertension: Code(s): I27.20 - Pulmonary hypertension, unspecified Status: Acute Assessment and Plan: Severe pulmonary hypertension with an RVSP of 60 mmHg. The most likely cause for this is his severe hypoxemia which is due to COPD and interstitial lung disease. He was not on oxygen at home. Patient has a history of COPD or breathing problems for 5 years but was not on any treatment. While he has been here his oxygen need has increased. He initially was on 4 L with an arterial blood gas that showed adequate oxygenation and normal acid-base status. He require 6-8 minutes to recover. He is now on a high-flow system to provide more O2. (3) Chronic obstructive pulmonary disease: Qualifiers: COPD type: unspecified COPD Qualified Code(s): J44.9 - Chronic obstructive pulmonary disease, unspecified Code(s): J44.9 - Chronic obstructive pulmonary disease, unspecified Status: Acute Assessment and Plan: Probable COPD, never smoked cigarettes, only cigars and stopped 10 years ago. 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 PFTs are indicated but he is not in good enough shape for this, and cannot take as an out patient if he requires high levels of O2. (4) Chronic shortness of breath: Code(s): R06.02 - Shortness of breath Status: Acute Assessment and Plan: Progressive over 5 years, worse over the last few months as his edema worsened. Exercise tolerance is abysmal, cannot bend over without having to rest. Will need physical therapy while he is here and cardiopulmonary therapy after discharge. (5) ILD (interstitial lung disease): Code(s): J84.9 - Interstitial pulmonary disease, unspecified Status: Acute Assessment and Plan: He has changes on his chest CT Had a large exposure to a large plume of bird excrement 6 years ago, had acute shortness of breath , cough, other symptoms including the onset of sinus drainage, coughing, gagging on secretions. (6) Cor pulmonale: Code(s): I27.81 - Cor pulmonale (chronic) Status: Acute Assessment and Plan: Over several months prior to admission, he had massive leg swelling, shortness of breath, and could not walk easily. He has pulmonary hypertension, early satiety, weight loss; needs to use O2 to prevent worsening pulmonary hypertension and reduce polycythemia. He is feeling much better sicne admis
[2019-10-21] VITALS (19 sets, daily range): BP systolic 105–122; BP diastolic 59–72; PULSE 59–89; RESP 20–26; TEMP 36.1–36.7; O2SAT 85–98
[2019-10-21 04:33] LABS: Hemoglobin 18.5 g/dL (14.0-18.0); Mean Corpuscular HGB Conc 33.6 g/dl (32-36); Mean Corpuscular Hemoglobin 36.1 pg (26-34); Mean Corpuscular Volume 107.2 fl (80-100); Mean Platelet Volume 11.3 fl (7.4-10.4); Platelet Count Result 181 k/mm3 (150-375); Red Blood Count 5.13 M/mm3 (4.6-6.20); Red Cell Distribution Width 15.2 % (11.5-14.5); White Blood Count 16.1 K/mm3 (4.5-10.0)
[2019-10-21 04:58] LABS: Blood Urea Nitrogen 26 mg/dL (9-20); Calcium 7.9 mg/dL (8.4-10.2); Carbon Dioxide > 40 mmol/L (22-30); Chloride 89 mmol/L (98-107); Estimated CRCL calculation 80 ml/min; Estimated Glomerular Filt Rate > 60; Glucose 111 mg/dL (75-110); Magnesium 1.8 mg/dL (1.6-2.3); Potassium 3.1 mmol/L (3.4-5.0); Sodium 135 mmol/L (137-145)
[2019-10-21] MEDS: FUROSEMIDE INJ 40 MG/4 ML VIAL IV PUSH ×4 (06:00→23:13)
[2019-10-21] MEDS: methylPREDNISolone SOD SUCC 40 MG VIAL IV PUSH ×3 (06:00→20:19)
[2019-10-21] MEDS: BUDESONIDE/FORMOTEROL (*SP) 160-4.5 MCG 6 GM INH 2 PUFF INHALATION ×2 (07:34→19:59)
[2019-10-21] MEDS: FLUTICASONE PROPIONATE 0.05% NA SPR 16 GM BTL (*BKC) 1 SPRAY NASAL ×2 (08:52→20:18)
[2019-10-21] MEDS: LORATADINE 10 MG TABLET PO (08:52)
[2019-10-21] MEDS: PANTOPRAZOLE SOD SESQUIHYDRATE 20 MG TAB PO (08:52)
[2019-10-21] MEDS: POTASSIUM CHLORIDE 20 MEQ TABLET.ER 40 MEQ PO ×2 (08:52→18:59)
[2019-10-21] MEDS: ENOXAPARIN 40 MG/0.4 ML SYRINGE SUB-Q (08:52)
--- NOTE | 2019-10-21 11:55 | PM.IMPN ---
Progress Note: A&P Assessment and Plan (1) Acute respiratory failure with hypoxia: Code(s): J96.01 - Acute respiratory failure with hypoxia Status: Acute Assessment and Plan: More likely acute on chronic respiratory failure. Pulmonology consulted and appreciate input. CTA chest with no pulmonary embolism but chronic diffuse bilateral lung disease and findings suggestive of pulmonary hypertension. Discussed with pulmonology over the weekend. Still requiring high-flow oxygen therapy but down to 40 L with FiO2 of 70%. Urine Histoplasma antigen and hypersensitivity pneumonitis panels pending. Will continue IV steroids and IV Lasix. Will leave IV ceftriaxone and azithromycin in place for now. Continue Symbicort and montelukast. Will need additional evaluation once more stable. Will continue to monitor. Wean oxygen as tolerated. Will add PT/OT to help with mobility. (2) Chronic obstructive pulmonary disease: Qualifiers: COPD type: unspecified COPD Qualified Code(s): J44.9 - Chronic obstructive pulmonary disease, unspecified Code(s): J44.9 - Chronic obstructive pulmonary disease, unspecified Status: Acute Assessment and Plan: Pulmonology consulted and appreciate input as noted above. Remains on IV steroids with IV antibiotics in place as noted. Continue Symbicort and montelukast. Remains on high-flow oxygen therapy but will continue to wean as tolerated. Will most likely need home oxygen evaluation when ready for discharge. (3) Congestive heart failure: Qualifiers: Heart failure chronicity: acute on chronic Heart failure type: diastolic Qualified Code(s): I50.33 - Acute on chronic diastolic (congestive) heart failure Code(s): I50.9 - Heart failure, unspecified Status: Acute Assessment and Plan: Echocardiogram with EF 55-60%, grade 1 diastolic dysfunction right ventricular systolic function severely reduced, severe pulmonary hypertension. Diuresing well. Edema has essentially resolved in the lower extremities with diuresis. Venous Dopplers of the lower extremities negative for DVT. Continue IV Lasix. Continue to monitor electrolytes and kidney function. (4) Hypokalemia: Code(s): E87.6 - Hypokalemia Status: Acute Assessment and Plan: Potassium still low at 3.1 today. Will increase oral potassium replacement. Telemetry reviewed on 10/21/2019 with sinus rhythm. Will continue to monitor potassium and adjust replacement as needed. (5) Hypomagnesemia: Code(s): E83.42 - Hypomagnesemia Status: Acute Assessment and Plan: Magnesium better at 1.8 today. Will continue to monitor and replace as needed. (6) Pulmonary hypertension: Code(s): I27.20 - Pulmonary hypertension, unspecified Status: Acute Assessment and Plan: Severe on echocardiogram. Result of pulmonary issues. Apnea Link ordered but will need to be more stable for this evaluation. (7) ILD (interstitial lung disease): Code(s): J84.9 - Interstitial pulmonary disease, unspecified Status: Acute Assessment and Plan: CT scan as noted above. Pulmonology following. Continue respiratory treatments as noted above. (8) Cor pulmonale: Code(s): I27.81 - Cor pulmonale (chronic) Status: Acute Assessment and Plan: As evidenced by other findings. Remains on oxygen as noted above. Pulmonology following. (9) Polycythemia secondary to hypoxia: Code(s): D75.1 - Secondary polycythemia Status: Acute Assessment and Plan: Hemoglobin 19.4 on admission. Was down to 17.7 but back up to 18.5 today. Will follow. (10) Rhinitis: Qualifiers: Rhinitis type: unspecified Qualified Code(s): J31.0 - Chronic rhinitis Code(s): J31.0 - Chronic rhinitis Status: Acute Assessment and Plan: Significantly improved. Continue Flonase and loratadine. (11) Syncope: Qualif
--- NOTE | 2019-10-21 17:28 | PM.PNPUL ---
Progress Note: A&P Assessment and Plan (1) Acute respiratory failure with hypoxia: Code(s): J96.01 - Acute respiratory failure with hypoxia Status: Acute Assessment and Plan: Likely acute on chronic hypoxemic respiratory failure due to ILD, unspecified type. Has diffuse changes on CT scan, clubbing of fingers and toes, progressive lower extremity edema representing right heart failure, plan: - decrease steroids, increase activity - decrease IV Lasix 40 - has been switched to simple cannula - continue inhaled bronchodilators - will need O2 set up prior to going home - said son bought concentrator online; will need tanks and supplies - ROBERTO testing is indicated, he is not stable enough for it (likely would not be compliant with care) - continue treatment for sinus drainage, has had for years, and this interferes with his sleep at night and breathing in the day time. - pending labs: hypersensitivity panel, KRISHNA, histo antigen, Aspergillus titers, IgE. - sputum studies as he has less nasal drainage and still has sputum - routine evaluation of swallowing; Aspiration can cause ILD. Start PPI - 20 mg pantoprazole Q day. -continue montelukast, antihistamine and nasal steroids for rhinitis - acetazolamide small amount for contraction alkalosis (2) Pulmonary hypertension: Code(s): I27.20 - Pulmonary hypertension, unspecified Status: Acute Assessment and Plan: Severe pulmonary hypertension with an RVSP of 60 mmHg. The most likely cause for this is his severe hypoxemia which is due to COPD and interstitial lung disease. He was not on oxygen at home. Patient has a history of COPD or breathing problems for 5 years but was not on any treatment. While he has been here his oxygen need has increased. He initially was on 4 L with an arterial blood gas that showed adequate oxygenation and normal acid-base status. He require 6-8 minutes to recover. He is now on a high-flow system to provide more O2. (3) Chronic obstructive pulmonary disease: Qualifiers: COPD type: unspecified COPD Qualified Code(s): J44.9 - Chronic obstructive pulmonary disease, unspecified Code(s): J44.9 - Chronic obstructive pulmonary disease, unspecified Status: Acute Assessment and Plan: Probable COPD, never smoked cigarettes, only cigars and stopped 10 years ago. 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 PFTs are indicated but he is not in good enough shape for this, and cannot take as an out patient if he requires high levels of O2. (4) Chronic shortness of breath: Code(s): R06.02 - Shortness of breath Status: Acute Assessment and Plan: Progressive over 5 years, worse over the last few months as his edema worsened. Exercise tolerance is abysmal, cannot bend over without having to rest. Will need physical therapy while he is here and cardiopulmonary therapy after discharge. (5) ILD (interstitial lung disease): Code(s): J84.9 - Interstitial pulmonary disease, unspecified Status: Acute Assessment and Plan: He has changes on his chest CT Had a large exposure to a large plume of bird excrement 6 years ago, had acute shortness of breath , cough, other symptoms including the onset of sinus drainage, coughing, gagging on secretions. (6) Cor pulmonale: Code(s): I27.81 - Cor pulmonale (chronic) Status: Acute Assessment and Plan: Over several months prior to admission, he had massive leg swelling, shortness of breath, and could not walk easily. He has pulmonary hypertension, early satiety, weight loss; needs to use O2 to preve
[2019-10-21] MEDS: MONTELUKAST SODIUM 10 MG TABLET PO (20:18)
[2019-10-21 20:40] LABS: Haptoglobin 160 mg/dL (43-212)
[2019-10-22] VITALS (16 sets, daily range): BP systolic 98–111; BP diastolic 55–69; PULSE 61–90; RESP 18–24; TEMP 36.1–36.6; O2SAT 91–98
[2019-10-22 05:25] LABS: Blood Urea Nitrogen 35 mg/dL (9-20); Carbon Dioxide > 40 mmol/L (22-30); Chloride 83 mmol/L (98-107); Estimated CRCL calculation 80 ml/min; Estimated Glomerular Filt Rate > 60; Glucose 140 mg/dL (75-110); Magnesium 1.8 mg/dL (1.6-2.3); Potassium 3.4 mmol/L (3.4-5.0); Sodium 134 mmol/L (137-145)
[2019-10-22] MEDS: FUROSEMIDE INJ 40 MG/4 ML VIAL IV PUSH ×4 (06:26→23:12)
[2019-10-22] MEDS: BUDESONIDE/FORMOTEROL (*SP) 160-4.5 MCG 6 GM INH 2 PUFF INHALATION ×2 (07:56→20:29)
[2019-10-22] MEDS: POTASSIUM CHLORIDE 20 MEQ TABLET.ER 40 MEQ PO ×2 (08:55→17:48)
[2019-10-22] MEDS: LORATADINE 10 MG TABLET PO (08:56)
[2019-10-22] MEDS: PANTOPRAZOLE SOD SESQUIHYDRATE 20 MG TAB PO (08:56)
[2019-10-22] MEDS: FLUTICASONE PROPIONATE 0.05% NA SPR 16 GM BTL (*BKC) 1 SPRAY NASAL ×2 (08:57→20:17)
[2019-10-22] MEDS: ENOXAPARIN 40 MG/0.4 ML SYRINGE SUB-Q (08:57)
[2019-10-22] MEDS: methylPREDNISolone SOD SUCC 40 MG VIAL IV PUSH ×2 (09:01→20:17)
[2019-10-22 10:39] LABS: ANA Cascade Screen Negative (Negative)
--- NOTE | 2019-10-22 17:24 | PM.IMPN ---
Progress Note: A&P Assessment and Plan (1) Acute respiratory failure with hypoxia: Code(s): J96.01 - Acute respiratory failure with hypoxia Status: Acute Assessment and Plan: More likely acute on chronic respiratory failure. Pulmonology consulted and appreciate input. CTA chest with no pulmonary embolism but chronic diffuse bilateral lung disease and findings suggestive of pulmonary hypertension. Discussed with pulmonology over the weekend. Still requiring high-flow oxygen therapy but down to 40 L with FiO2 of 70%. Urine Histoplasma antigen and hypersensitivity pneumonitis panels pending. Will continue IV steroids and IV Lasix. Will leave IV ceftriaxone and azithromycin in place for now. Continue Symbicort and montelukast. Will need additional evaluation once more stable. Will continue to monitor. Wean oxygen as tolerated. Will add PT/OT to help with mobility. Date of Service: 10/22/2019. Admitted with acute (probably acute on chronic) respiratory failure, chronic lung disease. Feeling a little bit better today. Unsure about shortness of breath but better than on admission. No chest pain or chest pressure. Does report cough has lessened with very little sputum production. Nasal congestion and drainage improved. No abdominal pain. No headache. Swelling in legs is gone. Patient is a 73-year-old male who presented emergency department with a complaint of shortness of breath and lower extremity swelling he was quite hypoxic and was saturating 83% on 4 L nasal cannula, patient is found to severe COPD interstitial lung disease and severe pulmonary hypertension patient is requiring 12 L of oxygen high-flow nasal cannula, and with slight exertion he desaturates, seen by Dr. Gonzalez patient is being treated with Lasix bronchodilator inhaled steroid, patient's symptoms are stable presently plan is to wean the patient off high-flow oxygen before discharging home (2) Chronic obstructive pulmonary disease: Qualifiers: COPD type: unspecified COPD Qualified Code(s): J44.9 - Chronic obstructive pulmonary disease, unspecified Code(s): J44.9 - Chronic obstructive pulmonary disease, unspecified Status: Acute Assessment and Plan: Pulmonology consulted and appreciate input as noted above. Remains on IV steroids with IV antibiotics in place as noted. Continue Symbicort and montelukast. Remains on high-flow oxygen therapy but will continue to wean as tolerated. Will most likely need home oxygen evaluation when ready for discharge. (3) Congestive heart failure: Qualifiers: Heart failure type: diastolic Heart failure chronicity: acute on chronic Qualified Code(s): I50.33 - Acute on chronic diastolic (congestive) heart failure Code(s): I50.9 - Heart failure, unspecified Status: Acute Assessment and Plan: Echocardiogram with EF 55-60%, grade 1 diastolic dysfunction right ventricular systolic function severely reduced, severe pulmonary hypertension. Diuresing well. Edema has essentially resolved in the lower extremities with diuresis. Venous Dopplers of the lower extremities negative for DVT. Continue IV Lasix. Continue to monitor electrolytes and kidney function. (4) Hypokalemia: Code(s): E87.6 - Hypokalemia Status: Acute Assessment and Plan: Potassium still low at 3.1 today. Will increase oral potassium replacement. Telemetry reviewed on 10/21/2019 with sinus rhythm. Will continue to monitor potassium and adjust replacement as needed. (5) Hypomagnesemia: Code(s): E83.42 - Hypomagnesemia Status: Acute Assessment and Plan: Magnesium better at 1.8 today. Will continue to monitor and replace as needed. (6) Pulmonary hypertension: Code(s): I27.20 - Pulmonary hypertension, unspecified Status: Acute Assessment and Plan: Severe on echocardiogram. Result of pulmonary issues. Apnea Link ordered but will need to be
--- NOTE | 2019-10-22 17:31 | PM.PNPUL ---
Progress Note: A&P Assessment and Plan (1) Acute respiratory failure with hypoxia: Code(s): J96.01 - Acute respiratory failure with hypoxia Status: Acute Assessment and Plan: Likely acute on chronic hypoxemic respiratory failure due to ILD, unspecified type. Has diffuse changes on CT scan, clubbing of fingers and toes, progressive lower extremity edema representing right heart failure, plan: - further decrease steroids, increase activity - decrease IV Lasix 40 - has been switched to simple cannula - continue inhaled bronchodilators - will need O2 set up prior to going home - said son bought concentrator online; will need tanks and supplies - ROBERTO testing is indicated, he is not stable enough for it (likely would not be compliant with care) - continue treatment for sinus drainage, has had for years, and this interferes with his sleep at night and breathing in the day time. - pending labs: hypersensitivity panel, KRISHNA, histo antigen, Aspergillus titers, IgE. - sputum studies as he has less nasal drainage and still has sputum - routine evaluation of swallowing; Aspiration can cause ILD. Start PPI - 20 mg pantoprazole Q day. - continue montelukast, antihistamine and nasal steroids for rhinitis - stopped acetazolamide; was using for contraction alkalosis (2) Pulmonary hypertension: Code(s): I27.20 - Pulmonary hypertension, unspecified Status: Acute Assessment and Plan: Severe pulmonary hypertension with an RVSP of 60 mmHg. The most likely cause for this is his severe hypoxemia which is due to COPD and interstitial lung disease. He was not on oxygen at home. Patient has a history of COPD or breathing problems for 5 years but was not on any treatment. While he has been here his oxygen need has increased. He initially was on 4 L with an arterial blood gas that showed adequate oxygenation and normal acid-base status. He require 6-8 minutes to recover. He is now on a high-flow system to provide more O2. (3) Chronic obstructive pulmonary disease: Qualifiers: COPD type: unspecified COPD Qualified Code(s): J44.9 - Chronic obstructive pulmonary disease, unspecified Code(s): J44.9 - Chronic obstructive pulmonary disease, unspecified Status: Acute Assessment and Plan: Probable COPD, never smoked cigarettes, only cigars and stopped 10 years ago. 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 PFTs are indicated but he is not in good enough shape for this, and cannot take as an out patient if he requires high levels of O2. (4) Chronic shortness of breath: Code(s): R06.02 - Shortness of breath Status: Acute Assessment and Plan: Progressive over 5 years, worse over the last few months as his edema worsened. Exercise tolerance is abysmal, cannot bend over without having to rest. Will need physical therapy while he is here and cardiopulmonary therapy after discharge. (5) ILD (interstitial lung disease): Code(s): J84.9 - Interstitial pulmonary disease, unspecified Status: Acute Assessment and Plan: He has changes on his chest CT Had a large exposure to a large plume of bird excrement 6 years ago, had acute shortness of breath , cough, other symptoms including the onset of sinus drainage, coughing, gagging on secretions. (6) Cor pulmonale: Code(s): I27.81 - Cor pulmonale (chronic) Status: Acute Assessment and Plan: Over several months prior to admission, he had massive leg swelling, shortness of breath, and could not walk easily. He has pulmonary hypertension, early satiety, weight loss; needs to
[2019-10-22 19:01] LABS: Immunoglobulin E 415 kU/L (<=114)
[2019-10-22] MEDS: MONTELUKAST SODIUM 10 MG TABLET PO (20:17)
[2019-10-23] VITALS (15 sets, daily range): BP systolic 96–112; BP diastolic 57–75; PULSE 67–105; RESP 18–22; TEMP 36.1–36.7; O2SAT 91–99
[2019-10-23 04:46] LABS: Mean Corpuscular HGB Conc 33.9 g/dl (32-36); Mean Corpuscular Hemoglobin 36.3 pg (26-34); Mean Corpuscular Volume 107.1 fl (80-100); Mean Platelet Volume 10.9 fl (7.4-10.4); Platelet Count Result 174 k/mm3 (150-375); Red Blood Count 5.79 M/mm3 (4.6-6.20); Red Cell Distribution Width 15.1 % (11.5-14.5)
[2019-10-23 05:13] LABS: Blood Urea Nitrogen 49 mg/dL (9-20); Calcium 8.2 mg/dL (8.4-10.2); Carbon Dioxide > 40 mmol/L (22-30); Chloride 84 mmol/L (98-107); Estimated CRCL calculation 53 ml/min; Estimated Glomerular Filt Rate > 60; Glucose 139 mg/dL (75-110); Sodium 130 mmol/L (137-145)
[2019-10-23] MEDS: FUROSEMIDE INJ 40 MG/4 ML VIAL IV PUSH (05:33)
[2019-10-23] MEDS: BUDESONIDE/FORMOTEROL (*SP) 160-4.5 MCG 6 GM INH 2 PUFF INHALATION ×2 (08:19→19:47)
[2019-10-23] MEDS: ENOXAPARIN 40 MG/0.4 ML SYRINGE SUB-Q (09:22)
[2019-10-23] MEDS: LORATADINE 10 MG TABLET PO (09:22)
[2019-10-23] MEDS: methylPREDNISolone SOD SUCC 40 MG VIAL IV PUSH ×2 (09:22→20:15)
[2019-10-23] MEDS: PANTOPRAZOLE SOD SESQUIHYDRATE 20 MG TAB PO (09:22)
[2019-10-23] MEDS: FLUTICASONE PROPIONATE 0.05% NA SPR 16 GM BTL (*BKC) 1 SPRAY NASAL ×2 (09:22→20:15)
[2019-10-23] MEDS: POTASSIUM CHLORIDE 20 MEQ TABLET.ER 40 MEQ PO ×2 (09:22→18:30)
--- NOTE | 2019-10-23 13:58 | PCOTNOTE ---
Attempted to see patient this pm, however patient unavailable. First attempt, patient was with physical therapy. Second attempt, patient was on bed side commode and stated he would be a while. Third attempt, patient was with respiratory therapy.
--- NOTE | 2019-10-23 16:24 | PM.PNPUL ---
Progress Note: A&P Assessment and Plan (1) Acute respiratory failure with hypoxia: Code(s): J96.01 - Acute respiratory failure with hypoxia Status: Acute Assessment and Plan: Likely acute on chronic hypoxemic respiratory failure due to ILD, unspecified type. Has diffuse changes on CT scan, clubbing of fingers and toes, progressive lower extremity edema representing right heart failure, plan: - further decrease steroids, increase activity - stop IV Lasix; his BUN and creat are increased and H/H higher - has been switched to simple cannula now at 8 L/min - continue inhaled bronchodilators - will need O2 set up prior to going home - said son bought concentrator online; will need tanks and supplies - ROBERTO testing is indicated, he is not stable enough for it (likely would not be compliant with care) - continue treatment for sinus drainage - pending labs: hypersensitivity panel, KRISHNA, histo antigen, Aspergillus titers, IgE. - sputum studies the sample he had was mostly saliva, I tossed it in the trash; he has less now - routine evaluation of swallowing; Aspiration can cause ILD. Start PPI - 20 mg pantoprazole Q day. - continue montelukast, antihistamine and nasal steroids for rhinitis - stopped acetazolamide; was using for contraction alkalosis - his oxygenation is worse than it was at admission, CTA was negative for PE 10/18/2019. I'm wondering if he nay have developed emboli since the first CT scan. (2) Pulmonary hypertension: Code(s): I27.20 - Pulmonary hypertension, unspecified Status: Acute Assessment and Plan: Severe pulmonary hypertension with an RVSP of 60 mmHg. The most likely cause for this is his severe hypoxemia which is due to COPD and interstitial lung disease. He was not on oxygen at home. Patient has a history of COPD or breathing problems for 5 years but was not on any treatment. While he has been here his oxygen need has increased. He initially was on 4 L with an arterial blood gas that showed adequate oxygenation and normal acid-base status. He require 6-8 minutes to recover. He is now on a simple cannula however high-flow system to provide more O2. (3) Chronic obstructive pulmonary disease: Qualifiers: COPD type: unspecified COPD Qualified Code(s): J44.9 - Chronic obstructive pulmonary disease, unspecified Code(s): J44.9 - Chronic obstructive pulmonary disease, unspecified Status: Acute Assessment and Plan: Probable COPD, never smoked cigarettes, only cigars and stopped 10 years ago. 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 PFTs are indicated but he is not in good enough shape for this, and cannot take as an out patient if he requires high levels of O2. (4) Chronic shortness of breath: Code(s): R06.02 - Shortness of breath Status: Acute Assessment and Plan: Progressive over 5 years, worse over the last few months as his edema worsened. Exercise tolerance is abysmal, cannot bend over without having to rest. Will need physical therapy while he is here and cardiopulmonary therapy after discharge. (5) ILD (interstitial lung disease): Code(s): J84.9 - Interstitial pulmonary disease, unspecified Status: Acute Assessment and Plan: He has changes on his chest CT consistent with ILD; Had a large exposure to a large plume of bird excrement 6 years ago, had acute shortness of breath , cough, other symptoms including the onset of sinus drainage, coughing, gagging on secretions. (6) Cor pulmonale: Code(s): I27.81 - Cor pulmonale (chronic) Status: Acute Assessment and P
--- NOTE | 2019-10-23 17:07 | PM.IMPN ---
Progress Note: A&P Assessment and Plan (1) Acute respiratory failure with hypoxia: Code(s): J96.01 - Acute respiratory failure with hypoxia Status: Acute Assessment and Plan: More likely acute on chronic respiratory failure. Pulmonology consulted and appreciate input. CTA chest with no pulmonary embolism but chronic diffuse bilateral lung disease and findings suggestive of pulmonary hypertension. Discussed with pulmonology over the weekend. Still requiring high-flow oxygen therapy but down to 40 L with FiO2 of 70%. Urine Histoplasma antigen and hypersensitivity pneumonitis panels pending. Will continue IV steroids and IV Lasix. Will leave IV ceftriaxone and azithromycin in place for now. Continue Symbicort and montelukast. Will need additional evaluation once more stable. Will continue to monitor. Wean oxygen as tolerated. Will add PT/OT to help with mobility. Date of Service: 10/22/2019. Admitted with acute (probably acute on chronic) respiratory failure, chronic lung disease. Feeling a little bit better today. Unsure about shortness of breath but better than on admission. No chest pain or chest pressure. Does report cough has lessened with very little sputum production. Nasal congestion and drainage improved. No abdominal pain. No headache. Swelling in legs is gone. Patient is a 73-year-old male who presented emergency department with a complaint of shortness of breath and lower extremity swelling he was quite hypoxic and was saturating 83% on 4 L nasal cannula, patient is found to severe COPD interstitial lung disease and severe pulmonary hypertension patient is requiring 12 L of oxygen high-flow nasal cannula, and with slight exertion he desaturates, seen by Dr. Gonzalez patient is being treated with Lasix bronchodilator inhaled steroid, patient's symptoms are stable however patient is being diuresed however patient kidney function is getting dry we are holding patient's Lasix, chest x-ray patient's symptoms are stable presently plan is to wean the patient off high-flow oxygen before discharging home (2) Chronic obstructive pulmonary disease: Qualifiers: COPD type: unspecified COPD Qualified Code(s): J44.9 - Chronic obstructive pulmonary disease, unspecified Code(s): J44.9 - Chronic obstructive pulmonary disease, unspecified Status: Acute Assessment and Plan: Pulmonology consulted and appreciate input as noted above. Remains on IV steroids with IV antibiotics in place as noted. Continue Symbicort and montelukast. Remains on high-flow oxygen therapy but will continue to wean as tolerated. Will most likely need home oxygen evaluation when ready for discharge. (3) Congestive heart failure: Qualifiers: Heart failure type: diastolic Heart failure chronicity: acute on chronic Qualified Code(s): I50.33 - Acute on chronic diastolic (congestive) heart failure Code(s): I50.9 - Heart failure, unspecified Status: Acute Assessment and Plan: Echocardiogram with EF 55-60%, grade 1 diastolic dysfunction right ventricular systolic function severely reduced, severe pulmonary hypertension. Diuresing well. Edema has essentially resolved in the lower extremities with diuresis. Venous Dopplers of the lower extremities negative for DVT. Continue IV Lasix. Continue to monitor electrolytes and kidney function. (4) Hypokalemia: Code(s): E87.6 - Hypokalemia Status: Acute Assessment and Plan: Potassium still low at 3.1 today. Will increase oral potassium replacement. Telemetry reviewed on 10/21/2019 with sinus rhythm. Will continue to monitor potassium and adjust replacement as needed. (5) Hypomagnesemia: Code(s): E83.42 - Hypomagnesemia Status: Acute Assessment and Plan: Magnesium better at 1.8 today. Will continue to monitor and replace as needed. (6) Pulmonary hypertension: Code(s): I27.20 - Pulmonary hypertension, uns
[2019-10-23] MEDS: MONTELUKAST SODIUM 10 MG TABLET PO (20:16)
[2019-10-24] VITALS (14 sets, daily range): BP systolic 96–123; BP diastolic 61–77; PULSE 64–91; RESP 16–22; TEMP 36.2–36.7; O2SAT 91–98
[2019-10-24 04:41] LABS: Hematocrit 60.2 % (42.0-52.0); Hemoglobin 20.5 g/dL (14.0-18.0); Mean Corpuscular HGB Conc 34.1 g/dl (32-36); Mean Corpuscular Hemoglobin 35.7 pg (26-34); Mean Corpuscular Volume 104.9 fl (80-100); Mean Platelet Volume 10.7 fl (7.4-10.4); Platelet Count Result 179 k/mm3 (150-375); Red Blood Count 5.74 M/mm3 (4.6-6.20); Red Cell Distribution Width 14.4 % (11.5-14.5); White Blood Count 16.8 K/mm3 (4.5-10.0)
[2019-10-24 05:18] LABS: Blood Urea Nitrogen 51 mg/dL (9-20); Calcium 8.5 mg/dL (8.4-10.2); Carbon Dioxide > 40 mmol/L (22-30); Chloride 87 mmol/L (98-107); Estimated CRCL calculation 58 ml/min; Estimated Glomerular Filt Rate > 60; Glucose 136 mg/dL (75-110); Potassium 4.7 mmol/L (3.4-5.0); Sodium 132 mmol/L (137-145)
[2019-10-24] MEDS: BUDESONIDE/FORMOTEROL (*SP) 160-4.5 MCG 6 GM INH 2 PUFF INHALATION ×2 (07:42→20:51)
[2019-10-24] MEDS: methylPREDNISolone SOD SUCC 40 MG VIAL IV PUSH ×2 (08:55→20:26)
[2019-10-24] MEDS: FLUTICASONE PROPIONATE 0.05% NA SPR 16 GM BTL (*BKC) 1 SPRAY NASAL ×2 (08:55→20:26)
[2019-10-24] MEDS: POTASSIUM CHLORIDE 20 MEQ TABLET.ER 40 MEQ PO (08:55)
[2019-10-24] MEDS: PANTOPRAZOLE SOD SESQUIHYDRATE 20 MG TAB PO (08:55)
[2019-10-24] MEDS: LORATADINE 10 MG TABLET PO (08:55)
[2019-10-24] MEDS: ENOXAPARIN 40 MG/0.4 ML SYRINGE SUB-Q (08:55)
[2019-10-24 10:15] LABS: Basophils Percent Auto 0.2 % (0.2-1.2); Eosinophils Percent Auto 0.1 % (0-4.4); Hematocrit 63.8 % (42.0-52.0); Hemoglobin 21.6 g/dL (14.0-18.0); Immature Granulocyte Absolute 0.08 K/mm3 (0.00-0.031); Immature Granulocyte Percent A 0.5 % (0-0.5); Lymphocytes Percent Auto 8.7 % (18.3-44.2); Mean Corpuscular HGB Conc 33.9 g/dl (32-36); Mean Corpuscular Hemoglobin 36.4 pg (26-34); Mean Corpuscular Volume 107.6 fl (80-100); Monocytes Absolute Auto 0.9 K/mm3 (0.1-0.6); Monocytes Percent Auto 5.5 % (2.6-8.5); Neutrophils Absolute Auto 13.6 K/mm3 (1.3-6.7); Platelet Count Result 175 k/mm3 (150-375); Red Blood Count 5.93 M/mm3 (4.6-6.20)
--- NOTE | 2019-10-24 12:20 | PCDIET ---
Weekly nutritional screen. Patient is tolerating current diet with adequate intake. No weight loss reported. Patient requesting diet information which was provided. No further recommendations at this time.
--- NOTE | 2019-10-24 12:34 | PM.PNPUL ---
Progress Note: A&P Assessment and Plan (1) ILD (interstitial lung disease): Code(s): J84.9 - Interstitial pulmonary disease, unspecified Status: Acute Assessment and Plan: UIP/IPF is less likely given CTA features but still possible. Autoimmune induced ILD is still possible as is occupational exposure. Medication induced is less likely. Hypersensistivity Pneumonitis is possible but no persistent chronic exposure in history other than the one time of bird droppings about six years ago. - will order CK, aldolase and ScL-70 today - Will order HRCT with expiratory and prone imaging to help better classify ILD. - definitive diagnosis is only possible by VATS lung biopsy but he is no condition to have that currently - agree with oxygenation and diuretic management per Dr. Gonzalez - also agree with trial of systemic steroids to see hyoxemia may improve (2) Pulmonary hypertension: Code(s): I27.20 - Pulmonary hypertension, unspecified Status: Acute (3) Acute on chronic respiratory failure with hypoxemia: Code(s): J96.21 - Acute and chronic respiratory failure with hypoxia Status: Acute Subjective Date/time seen: 10/24/19 12:34 Interval history: Patient is feeling much better than when he first came in. Has ILD with chronic hypoxemia. DD being considered is occupational exposure. 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 He also says he was exposed to bird dropping at his him but this was a one time exposure about six years ago and he thinks his dyspnea preceded that. He was also exposed to agent orange during his time in the He does not a period of diffuse upper limb and torso rash but denied any signs of proximal muscle weakness but not diagnosis of this rash was never clearly diagnosed. He has no significant tobacco smoking history and smoked cigars 2-3X/month Review of Systems Review of Systems: All systems reviewed & are unremarkable except as noted in HPI and below Exam Narrative: Exam Narrative: This 73 yo man has a zabrian complexion, improved. Const: General: no acute distress (He is able to speak in longer sentences. ) Eyes: General: appearance normal, both eyes and all related structures Neck: Neck: supple Resp: Auscultation: crackles (less prominent, 1/3 up both posterior lung ramos) bilateral Cardio: Rate: regular rate Rhythm: regular rhythm Skin: General skin exam: erythema Extrem: General: clubbing Psych: Mental Status: mental status grossly normal Objective Data Vital Signs Vital Signs: Vital Signs - 24 hr 10/23/19 14:00 10/23/19 16:00 10/23/19 18:00 Temperature 36.1 C L Pulse Rate 76 78 87 Respiratory Rate 20 Blood Pressure 107/68 Pulse Oximetry 91 10/23/19 19:47 10/23/19 20:00 10/23/19 22:00 Temperature 36.6 C Pulse Rate 90 85 84 Respiratory Rate 20 22 H Blood Pressure 112/65 Pulse Oximetry 91 92 10/23/19 23:17 10/23/19 23:27 10/24/19 02:00 Temperature 36.7 C Pulse Rate 85 85 68 Respiratory Rate 22 H 22 H Blood Pressure 106/67 Pulse Oximetry 93 93 10/24/19 04:00 10/24/19 05:46 10/24/19 07:47 Temperature 36.7 C Pulse Rate 68 70 90 Respiratory Rate 20 20 Blood Pressure 96/61 L Pulse Oximetry 95 92 10/24/19 08:00 10/24/19 08:50 10/24/19 10:00 Temperature 36.7 C Pulse Rate 64 74 Respiratory Rate 16 Blood Pressure 114/68 Pulse Oximetry 98 94 10/24/19 12:00 10/24/19 12:15 Temperature 36.4 C L Pulse Rate 71 Respiratory Rate 20 Blood Pressure 123/72 Pulse Oximetry 95 96 Intake/Output Intake/Output: Intake & Output 10/21/19 10/22/19 10/23/19 10/24/19 23:59 23:59 23:59 23:59 Intake Total 2740 780 1020 360 Output Total 5400 4250 2200 1300 [facility] [phone] Meds/Results Medications: Active Medications Generic Name Dose Route Start Last Admin Trade Na
[2019-10-24 13:36] LABS: Creatine Kinase < 20 U/L (55-170)
--- NOTE | 2019-10-24 16:45 | PC.NURSE ---
This patient, Carmelo Argueta, was transferred to [facility] on 10/24/19 at 1645. Personal belongings sent with patient. Report given to DRU Laboy. Appropriate documentation sent with patient.
--- NOTE | 2019-10-24 17:01 | PC.NURSE ---
This patient, Carmelo Argueta, was received from [facility] on 10/24/19 at 1701. Personal belongings list checked and signed. Patient/family oriented to unit policies and routines
--- NOTE | 2019-10-24 18:18 | PM.IMPN ---
Progress Note: A&P Assessment and Plan (1) Acute respiratory failure with hypoxia: Code(s): J96.01 - Acute respiratory failure with hypoxia Status: Acute Assessment and Plan: More likely acute on chronic respiratory failure. Pulmonology consulted and appreciate input. CTA chest with no pulmonary embolism but chronic diffuse bilateral lung disease and findings suggestive of pulmonary hypertension. Discussed with pulmonology over the weekend. Still requiring high-flow oxygen therapy but down to 40 L with FiO2 of 70%. Urine Histoplasma antigen and hypersensitivity pneumonitis panels pending. Will continue IV steroids and IV Lasix. Will leave IV ceftriaxone and azithromycin in place for now. Continue Symbicort and montelukast. Will need additional evaluation once more stable. Will continue to monitor. Wean oxygen as tolerated. Will add PT/OT to help with mobility. Date of Service: 10/22/2019. Admitted with acute (probably acute on chronic) respiratory failure, chronic lung disease. Feeling a little bit better today. Unsure about shortness of breath but better than on admission. No chest pain or chest pressure. Does report cough has lessened with very little sputum production. Nasal congestion and drainage improved. No abdominal pain. No headache. Swelling in legs is gone. 10/24/19 18:18 Patient is a 73-year-old male who presented emergency department with a complaint of shortness of breath and lower extremity swelling he was quite hypoxic and was saturating 83% on 4 L nasal cannula, patient is found to severe COPD interstitial lung disease and severe pulmonary hypertension patient is requiring 12 L of oxygen high-flow nasal cannula, and with slight exertion he desaturates, seen by Dr. Gonzalez patient is being treated with Lasix bronchodilator inhaled steroid, patient's symptoms are stable however patient is being diuresed however patient kidney function is getting dry we are holding patient's Lasix, chest x-ray patient's symptoms are stable presently plan is to wean the patient off high-flow oxygen before discharging home patient is seen by oncologist suspect patient may have polycythemia vera we have consulted prescription benefit specialist and recommending phlebotomy 500 cc, will continue to monitor patient overall symptoms are improved his requiring less oxygen now on 8 L compared to 12 L initially (2) Chronic obstructive pulmonary disease: Qualifiers: COPD type: unspecified COPD Qualified Code(s): J44.9 - Chronic obstructive pulmonary disease, unspecified Code(s): J44.9 - Chronic obstructive pulmonary disease, unspecified Status: Acute Assessment and Plan: Pulmonology consulted and appreciate input as noted above. Remains on IV steroids with IV antibiotics in place as noted. Continue Symbicort and montelukast. Remains on high-flow oxygen therapy but will continue to wean as tolerated. Will most likely need home oxygen evaluation when ready for discharge. (3) Congestive heart failure: Qualifiers: Heart failure type: diastolic Heart failure chronicity: acute on chronic Qualified Code(s): I50.33 - Acute on chronic diastolic (congestive) heart failure Code(s): I50.9 - Heart failure, unspecified Status: Acute Assessment and Plan: Echocardiogram with EF 55-60%, grade 1 diastolic dysfunction right ventricular systolic function severely reduced, severe pulmonary hypertension. Diuresing well. Edema has essentially resolved in the lower extremities with diuresis. Venous Dopplers of the lower extremities negative for DVT. Continue IV Lasix. Continue to monitor electrolytes and kidney function. (4) Hypokalemia: Code(s): E87.6 - Hypokalemia Status: Acute Assessment and Plan: Potassium still low at 3.1 today. Will increase oral potassium replacement. Telemetry reviewed on 10/21/2019 with sinus rhythm. Will continue to monitor potassium and adjust replacement
--- NOTE | 2019-10-24 19:16 | CONS_ITS ---
DATE OF CONSULTATION: 10/24/2019 REASON FOR CONSULTATION: Polycythemia. HISTORY OF PRESENTING ILLNESS: This is a pleasant 73-year-old male with history of chronic obstructive pulmonary disease. The patient denies any history of smoking, but only smokes cigars. He came into the hospital with bilateral lower extremity swelling and shortness of breath. He denies any cough, fevers or chills. He also complained of early satiety and only eat very little at a time. He has lost almost 30 pounds weight in the last couple of years duration. He denies any history of sleep apnea. With these complaints, patient had CTA chest done that showed no evidence of pulmonary embolism, but there was chronic diffuse bilateral lung disease with bronchiectasis. There was mild mediastinal and bilateral hilar lymphadenopathy. Blood workup showed hemoglobin of 19.4 with hematocrit of 63%. WBC was also slightly elevated at 16,000 on subsequent check. REVIEW OF SYSTEMS: A 12-point review of system was reviewed and as per HPI, otherwise negative. PAST MEDICAL HISTORY: COPD. PAST SURGICAL HISTORY: Appendectomy. FAMILY HISTORY: Noncontributory. SOCIAL HISTORY: The patient denies any history of smoking, but smokes cigar occasionally. He is . HOME MEDICATIONS: Reviewed. ALLERGIES: REVIEWED. PHYSICAL EXAMINATION: GENERAL: This patient is a well-developed, well-nourished male, in no apparent distress. Alert and oriented. VITAL SIGNS: Vital signs per nursing note. HEENT: Normocephalic, atraumatic. Clear oropharynx. LUNGS: Clear to auscultation bilaterally. CARDIOVASCULAR: Regular rate and rhythm. No murmurs. ABDOMEN: Soft, nontender, nondistended. Bowel sounds are positive in all 4 quadrants. No hepatosplenomegaly. EXTREMITIES: No edema. NEUROLOGIC: Grossly intact. LABORATORY DATA: WBC 16, hemoglobin 21.6, hematocrit 63.8, MCV 107, platelet 175,000, neutrophils 85%. Creatinine 1.0, sodium 132, vitamin B12 817. Erythropoietin level is pending. JAK2 mutation is also pending. ASSESSMENT AND PLAN: Polycythemia. This is a 73-year-old male with no history of smoking, but history of smoking cigars occasionally. He also denies any history of sleep apnea. He has lost 30 pounds weight in last couple of years duration due to poor appetite. He claimed that he gets full very quickly when he eats and only little at a time. I have reviewed these findings as well as imaging studies with the patient. CTA chest was performed that only showed no evidence of pulmonary embolism, but chronic diffuse bilateral lung disease with bronchiectasis, mediastinal and bilateral hilar lymphadenopathy, likely reactive and mild. JAK2 mutation testing has been ordered as well as erythropoietin level. 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 I will order the spleen ultrasound given the history of early satiety. The patient would need phlebotomy to keep hematocrit less than 45 and that might help his breathing complaint. He is already on Lovenox subcu for DVT prophylaxis. I would recommend taking baby aspirin a day. I have provided him my office information for followup visit. We will likely start performing phlebotomy in the office setting. GORDY CASTRO M.D. UPHOLSTERY AUTO TRIMMER UPHOLSTERY AUTO TRIMMER D I MT: [place]
[2019-10-24] MEDS: MONTELUKAST SODIUM 10 MG TABLET PO (20:26)
[2019-10-25] VITALS (12 sets, daily range): BP systolic 110–156; BP diastolic 61–86; PULSE 60–87; RESP 18–22; TEMP 36.1–36.7; O2SAT 88–97
[2019-10-25 04:48] LABS: Hematocrit 61.5 % (42.0-52.0); Hemoglobin 20.5 g/dL (14.0-18.0); Mean Corpuscular HGB Conc 33.3 g/dl (32-36); Mean Corpuscular Hemoglobin 35.9 pg (26-34); Mean Corpuscular Volume 107.7 fl (80-100); Mean Platelet Volume 10.9 fl (7.4-10.4); Platelet Count Result 164 k/mm3 (150-375); Red Blood Count 5.71 M/mm3 (4.6-6.20); Red Cell Distribution Width 14.6 % (11.5-14.5); White Blood Count 17.3 K/mm3 (4.5-10.0)
[2019-10-25 05:02] LABS: Blood Urea Nitrogen 43 mg/dL (9-20); Calcium 8.7 mg/dL (8.4-10.2); Carbon Dioxide 38 mmol/L (22-30); Chloride 93 mmol/L (98-107); Estimated CRCL calculation 64 ml/min; Estimated Glomerular Filt Rate > 60; Glucose 142 mg/dL (75-110); Potassium 4.9 mmol/L (3.4-5.0); Sodium 132 mmol/L (137-145)
[2019-10-25] MEDS: BUDESONIDE/FORMOTEROL (*SP) 160-4.5 MCG 6 GM INH 2 PUFF INHALATION ×2 (08:16→19:22)
[2019-10-25] MEDS: ENOXAPARIN 40 MG/0.4 ML SYRINGE SUB-Q (09:52)
[2019-10-25] MEDS: FLUTICASONE PROPIONATE 0.05% NA SPR 16 GM BTL (*BKC) 1 SPRAY NASAL ×2 (09:52→20:00)
[2019-10-25] MEDS: PANTOPRAZOLE SOD SESQUIHYDRATE 20 MG TAB PO (09:53)
[2019-10-25] MEDS: LORATADINE 10 MG TABLET PO (09:53)
[2019-10-25] MEDS: methylPREDNISolone SOD SUCC 40 MG VIAL IV PUSH ×2 (09:53→20:00)
--- NOTE | 2019-10-25 11:26 | PM.PNPUL ---
Progress Note: A&P Assessment and Plan (1) ILD (interstitial lung disease): Code(s): J84.9 - Interstitial pulmonary disease, unspecified Status: Acute Assessment and Plan: UIP/IPF is less likely given CTA features but still possible. Autoimmune induced ILD is still possible as is occupational exposure. Medication induced is less likely. Hypersensistivity Pneumonitis is possible but no persistent chronic exposure in history other than the one time of bird droppings about six years ago. - Can go home on oxygen oxymizer at 8 liters at rest and 12 liters on exertion, keeping oxygen > 92% at all times - polycythemia likely due to chronic hypoxemia - CK normal, aldolase and Scl-70 pending - Will order HRCT with expiratory and prone imaging to help better classify ILD. - definitive diagnosis is only possible by VATS lung biopsy but he is no condition to have that currently - agree with oxygenation and diuretic management per Dr. Gonzalez - also agree with trial of systemic steroids to see hyoxemia may improve (2) Pulmonary hypertension: Code(s): I27.20 - Pulmonary hypertension, unspecified Status: Acute (3) Acute on chronic respiratory failure with hypoxemia: Code(s): J96.21 - Acute and chronic respiratory failure with hypoxia Status: Acute Subjective Date/time seen: 10/25/19 11:26 Interval history: Feeling better but still requiring 8 liters of oxygen to keep sats > 90% at rest. CK normal and Aldolase pending Exam Narrative: Exam Narrative: This 73 yo man has a zabrina complexion, improved. Const: General: no acute distress (He is able to speak in longer sentences. ) Eyes: General: appearance normal, both eyes and all related structures Neck: Neck: supple Resp: Auscultation: crackles (less prominent, 1/3 up both posterior lung ramos) bilateral Cardio: Rate: regular rate Rhythm: regular rhythm Skin: General skin exam: erythema Extrem: General: clubbing Psych: Mental Status: mental status grossly normal Objective Data Vital Signs Vital Signs: Vital Signs - 24 hr 10/24/19 12:00 10/24/19 12:15 10/24/19 14:00 Temperature 36.4 C L Pulse Rate 73 72 Respiratory Rate 20 Blood Pressure 123/72 Pulse Oximetry 95 96 10/24/19 16:00 10/24/19 17:02 10/24/19 20:00 Temperature 36.2 C L 36.6 C 36.6 C Pulse Rate 76 79 76 Respiratory Rate 20 18 18 Blood Pressure 112/73 113/77 107/65 Pulse Oximetry 91 95 92 10/24/19 21:01 10/25/19 00:00 10/25/19 04:00 Temperature 36.3 C L 36.6 C Pulse Rate 91 87 65 Respiratory Rate 20 20 20 Blood Pressure 156/78 H 116/75 Pulse Oximetry 92 95 92 10/25/19 08:16 10/25/19 08:57 Temperature Pulse Rate Respiratory Rate Blood Pressure Pulse Oximetry 90 93 Intake/Output Intake/Output: Intake & Output 10/22/19 10/23/19 10/24/19 10/25/19 23:59 23:59 23:59 23:59 Intake Total 780 1020 1620 510 Output Total 4250 2200 1500 750 Balance -3470 -1180 120 -240 Meds/Results Medications: Active Medications Generic Name Dose Route Start Last Admin Trade Name Freq PRN Reason Stop Dose Admin Albuterol 2 puff 10/17/19 19:25 10/19/19 20:15 Proventil Hfa INHALATION 2 puff QIDRT PRN Administration Shortness Of Breath Budesonide/Formoterol Fumarate 2 puff 10/19/19 20:00 10/25/19 08:16 Symbicort 160-4.5 Mcg Inhaler INHALATION 2 puff Q12HRT TESSA Administration Enoxaparin Sodium 40 mg 10/18/19 09:00 10/25/19 09:52 Lovenox SUB-Q 40 mg DAILY TESSA Administration Fluticasone Propionate 1 spray 10/19/19 21:00 10/25/19 09:52 Flonase 0.05% Nasal Herrick NASAL 1 spray Q12HR TESSA Administration Guaifenesin 600 mg 10/17/19 21:00 10/25/19 09:53 Mucinex 12 Hr Tab PO 600 mg Q12HR TESSA Administration Ceftriaxone Sodium/Dextrose 1 gm in 50 mls @ 100 mls/hr 10/17/19 21:00 10/24/19 20:47 Rocephin 1 Gm/D5w 50 Ml IVPB Infused HS TESSA Infusion Azithromycin 500 mg in 250 m
--- NOTE | 2019-10-25 13:00 | PM.IMPN ---
Progress Note: A&P Assessment and Plan (1) Acute respiratory failure with hypoxia: Code(s): J96.01 - Acute respiratory failure with hypoxia Status: Acute Assessment and Plan: 10/25/19 13:00 More likely acute on chronic respiratory failure. Pulmonology consulted and appreciate input. CTA chest with no pulmonary embolism but chronic diffuse bilateral lung disease and findings suggestive of pulmonary hypertension. Discussed with pulmonology over the weekend. Still requiring high-flow oxygen therapy but down to 40 L with FiO2 of 70%. Urine Histoplasma antigen and hypersensitivity pneumonitis panels pending. Will continue IV steroids and IV Lasix. Will leave IV ceftriaxone and azithromycin in place for now. Continue Symbicort and montelukast. Will need additional evaluation once more stable. Will continue to monitor. Wean oxygen as tolerated. Will add PT/OT to help with mobility. Date of Service: 10/22/2019. Admitted with acute (probably acute on chronic) respiratory failure, chronic lung disease. Feeling a little bit better today. Unsure about shortness of breath but better than on admission. No chest pain or chest pressure. Does report cough has lessened with very little sputum production. Nasal congestion and drainage improved. No abdominal pain. No headache. Swelling in legs is gone. Patient is a 73-year-old male who presented emergency department with a complaint of shortness of breath and lower extremity swelling he was quite hypoxic and was saturating 83% on 4 L nasal cannula, patient is found to severe COPD interstitial lung disease and severe pulmonary hypertension patient is requiring 12 L of oxygen high-flow nasal cannula, and with slight exertion he desaturates, seen by Dr. Gonzalez patient is being treated with Lasix bronchodilator inhaled steroid, patient's symptoms are stable however patient is being diuresed however patient kidney function is getting dry we are holding patient's Lasix, chest x-ray patient's symptoms are stable presently plan is to wean the patient off high-flow oxygen before discharging home patient is seen by oncologist suspect patient may have polycythemia vera we have consulted inspector floor sub assembly and recommending phlebotomy 500 cc, this will be done as outpatient, today patient is feeling much better not a short of breath, on 10/24 will continue to monitor patient overall symptoms have improved he is still requiring less oxygen now on 8 L compared to 12 L initially will continue to wean the patient off high-flow oxygen, patient be seen by bonding machine setter and further recommendation to follow (2) Chronic obstructive pulmonary disease: Qualifiers: COPD type: unspecified COPD Qualified Code(s): J44.9 - Chronic obstructive pulmonary disease, unspecified Code(s): J44.9 - Chronic obstructive pulmonary disease, unspecified Status: Acute Assessment and Plan: Pulmonology consulted and appreciate input as noted above. Remains on IV steroids with IV antibiotics in place as noted. Continue Symbicort and montelukast. Remains on high-flow oxygen therapy but will continue to wean as tolerated. Will most likely need home oxygen evaluation when ready for discharge. (3) Congestive heart failure: Qualifiers: Heart failure chronicity: acute on chronic Heart failure type: diastolic Qualified Code(s): I50.33 - Acute on chronic diastolic (congestive) heart failure Code(s): I50.9 - Heart failure, unspecified Status: Acute Assessment and Plan: Echocardiogram with EF 55-60%, grade 1 diastolic dysfunction right ventricular systolic function severely reduced, severe pulmonary hypertension. Diuresing well. Edema has essentially resolved in the lower extremities with diuresis. Venous Dopplers of the lower extremities negative for DVT. Continue IV Lasix. Continue to monitor electrolytes and kidney function. (4) Hypokalemia: Code(s): E87.6 - Hypokalemia
--- NOTE | 2019-10-25 17:33 | WPDONCPN ---
Progress Note: A/P - Additional Plan Erythrocytosis. Unclear etiology could be secondary to chronic hypoxemia versus bone marrow disorder like polycythemia vera. EPO level is pending. JAK2 mutation is also pending. I plan to perform weekly phlebotomy as an outpatient. Patient has my office information. I have also instructed him to take baby aspirin on a daily basis. - Time Spent With Patient Total time spent is greater than 50% in coordination of care (as documented) at patient's floor/unit and/or counseling patient: 15 - 25 minutes Subjective Interval history: Erythrocytosis Chronic hypoxemia of unclear etiology Review of Systems - Review of Systems Patient looks quite comfortable. He he denies any chest pain. He does have some shortness of breath and dyspnea on exertion but denies any cough. No fevers and chills. - Neurologic Reports weakness, Denies confusion, Denies headache(s), Denies numbness Exam Vital signs: Temp Pulse Resp BP Pulse Ox 36.6 C 66 22 H 134/86 91 10/25/19 14:00 10/25/19 16:00 10/25/19 14:00 10/25/19 14:00 10/25/19 14:00 Lungs are clear to auscultation bilaterally with decreased breath sounds at the bases Cardiovascular regular rate rhythm no murmurs Abdomen soft nontender nondistended bowel sounds are positive Extremities no edema PN: Objective Data - Labs CBC & Chem 7: 10/25/19 04:39 10/25/19 04:39 Labs: Laboratory Results - last 24 hr 10/20/19 10/25/19 10/25/19 04:15 04:39 04:39 WBC 17.3 H RBC 5.71 Hgb 20.5 H Hct 61.5 H MCV 107.7 H MCH 35.9 H MCHC 33.3 RDW 14.6 H Plt Count 164 MPV 10.9 H Sodium 132 L Potassium 4.9 Chloride 93 L Carbon Dioxide 38 H BUN 43 H Creatinine 0.90 Estim Creat Clear Calc 64 Estimated GFR > 60 Glucose 142 H Calcium 8.7 A. flavus Allergen IgE Negative A.fumigatus Allerg IgG Negative A. niger Allergen IgE Negative
--- NOTE | 2019-10-25 18:58 | PC.NURSE ---
Patient's O2 sat 88% on 9 liters high flow oxygen. Denies dyspnea and no distress noted. Called Dr. Don and left voice message concerning same. O2 sat has been fluctuating between 88-93% today.
--- NOTE | 2019-10-25 18:59 | PC.NURSE ---
Notified respiratory of patient's O2 sat - has prn Albuterol ordered. Requested dose for patient.
[2019-10-25] MEDS: ALBUTEROL SULFATE (*SP) AEROSOL 1 PUFF 2 PUFF INHALATION (19:22)
[2019-10-25] MEDS: MONTELUKAST SODIUM 10 MG TABLET PO (20:02)
[2019-10-25 20:31] LABS: Erythropoietin (EPO) 2.4 mIU/mL (2.6-18.5)
[2019-10-26] VITALS (11 sets, daily range): BP systolic 109–144; BP diastolic 64–76; PULSE 64–95; RESP 16–20; TEMP 36.1–36.6; O2SAT 91–96
[2019-10-26 06:55] LABS: Hematocrit 62.6 % (42.0-52.0); Hemoglobin 21.1 g/dL (14.0-18.0); Immature Platelet Fraction Pct 9.3 % (0.9-11.2); Mean Corpuscular HGB Conc 33.7 g/dl (32-36); Mean Corpuscular Hemoglobin 36.6 pg (26-34); Mean Corpuscular Volume 108.5 fl (80-100); Mean Platelet Volume 11.8 fl (7.4-10.4); Platelet Count Result 156 k/mm3 (150-375); Red Blood Count 5.77 M/mm3 (4.6-6.20); Red Cell Distribution Width 14.6 % (11.5-14.5); White Blood Count 15.1 K/mm3 (4.5-10.0)
[2019-10-26 07:00] LABS: Blood Urea Nitrogen 42 mg/dL (9-20); Calcium 8.7 mg/dL (8.4-10.2); Carbon Dioxide 37 mmol/L (22-30); Chloride 93 mmol/L (98-107); Estimated CRCL calculation 81 ml/min; Estimated Glomerular Filt Rate > 60; Glucose 137 mg/dL (75-110); Potassium 5.2 mmol/L (3.4-5.0); Sodium 132 mmol/L (137-145)
[2019-10-26] MEDS: ENOXAPARIN 40 MG/0.4 ML SYRINGE SUB-Q (08:20)
[2019-10-26] MEDS: FLUTICASONE PROPIONATE 0.05% NA SPR 16 GM BTL (*BKC) 1 SPRAY NASAL (08:20)
[2019-10-26] MEDS: LORATADINE 10 MG TABLET PO (08:20)
[2019-10-26] MEDS: PANTOPRAZOLE SOD SESQUIHYDRATE 20 MG TAB PO (08:20)
[2019-10-26] MEDS: BUDESONIDE/FORMOTEROL (*SP) 160-4.5 MCG 6 GM INH 2 PUFF INHALATION (08:59)
[2019-10-26] MEDS: methylPREDNISolone SOD SUCC 40 MG VIAL IV PUSH (09:19)
[2019-10-26] MEDS: FUROSEMIDE 40 MG TABLET PO (09:19)
[2019-10-26] MEDS: methylPREDNISolone SOD SUCC 125 MG VIAL 80 MG IV PUSH ×2 (12:51→17:43)
[2019-10-26] MEDS: SALINE 0.65% NAS SOLN 44 ML BTL 1 SPRAY NASAL (12:54)
--- NOTE | 2019-10-26 13:19 | PM.IMPN ---
Progress Note: A&P Assessment and Plan (1) Acute respiratory failure with hypoxia: Code(s): J96.01 - Acute respiratory failure with hypoxia Status: Acute Assessment and Plan: 10/26/19 13:19 More likely acute on chronic respiratory failure. Pulmonology consulted and appreciate input. CTA chest with no pulmonary embolism but chronic diffuse bilateral lung disease and findings suggestive of pulmonary hypertension. Discussed with pulmonology over the weekend. Still requiring high-flow oxygen therapy but down to 40 L with FiO2 of 70%. Urine Histoplasma antigen and hypersensitivity pneumonitis panels pending. Will continue IV steroids and IV Lasix. Will leave IV ceftriaxone and azithromycin in place for now. Continue Symbicort and montelukast. Will need additional evaluation once more stable. Will continue to monitor. Wean oxygen as tolerated. Will add PT/OT to help with mobility. Date of Service: 10/22/2019. Admitted with acute (probably acute on chronic) respiratory failure, chronic lung disease. Feeling a little bit better today. Unsure about shortness of breath but better than on admission. No chest pain or chest pressure. Does report cough has lessened with very little sputum production. Nasal congestion and drainage improved. No abdominal pain. No headache. Swelling in legs is gone. Patient is a 73-year-old male who presented emergency department with a complaint of shortness of breath and lower extremity swelling he was quite hypoxic and was saturating 83% on 4 L nasal cannula, patient is found to severe COPD interstitial lung disease and severe pulmonary hypertension patient is requiring 12 L of oxygen high-flow nasal cannula, and with slight exertion he desaturates, seen by Dr. Gonzalez patient is being treated with Lasix bronchodilator inhaled steroid, patient's symptoms are stable, patient is being diuresed however patient kidney function is getting dry we are holding patient's Lasix, chest x-ray showed some improvement in pulmanary edema, again patient's symptoms are stable presently plan is to wean the patient off high-flow oxygen before discharging home, patient erythrocytosis is seen by hematalogist suspect 2/2 hypoxemia or polycythemia vera recommending phlebotomy 500 cc, weekly this will be done as outpatient, today patient is feeling much better not a short of breath, on 10/25 communicated with chemical equipment sales engineer as patient requring more oxygen will add lasix 40mg PO daily, and start low sodium diet, will continue to monitor patient overall symptoms have improved he is still requiring less oxygen now on 8 L compared to 12 L initially will continue to wean the patient off high-flow oxygen, patient will be seen by chemical equipment sales engineer and further recommendation to follow (2) Chronic obstructive pulmonary disease: Qualifiers: COPD type: unspecified COPD Qualified Code(s): J44.9 - Chronic obstructive pulmonary disease, unspecified Code(s): J44.9 - Chronic obstructive pulmonary disease, unspecified Status: Acute Assessment and Plan: Pulmonology consulted and appreciate input as noted above. Remains on IV steroids with IV antibiotics in place as noted. Continue Symbicort and montelukast. Remains on high-flow oxygen therapy but will continue to wean as tolerated. Will most likely need home oxygen evaluation when ready for discharge. (3) Congestive heart failure: Qualifiers: Heart failure type: diastolic Heart failure chronicity: acute on chronic Qualified Code(s): I50.33 - Acute on chronic diastolic (congestive) heart failure Code(s): I50.9 - Heart failure, unspecified Status: Acute Assessment and Plan: Echocardiogram with EF 55-60%, grade 1 diastolic dysfunction right ventricular systolic function severely reduced, severe pulmonary hypertension. Diuresing well. Edema has essentially resolved in the lower extremities with diuresis. Venous Dopplers of the lower e
--- NOTE | 2019-10-26 14:10 | PM.PNPUL ---
Progress Note: A&P Assessment and Plan (1) ILD (interstitial lung disease): Code(s): J84.9 - Interstitial pulmonary disease, unspecified Status: Acute Assessment and Plan: UIP/IPF is less likely given CTA features but still possible. Autoimmune induced ILD is still possible as is occupational exposure. Medication induced is less likely. Hypersensistivity Pneumonitis is possible but no persistent chronic exposure in history other than the one time of bird droppings about six years ago. - Can go home on oxygen oxymizer at 8 liters at rest and 12 liters on exertion, keeping oxygen > 92% at all times - polycythemia likely due to chronic hypoxemia - CK normal, aldolase and Scl-70 pending - Will order HRCT with expiratory and prone imaging to help better classify ILD. - definitive diagnosis is only possible by VATS lung biopsy but he is no condition to have that currently - agree with oxygenation and diuretic management per Dr. Gonzalez - Will increase methylprednisilone to 80 mg IV Q6h - agree with adding Lasix 40 mg daily - encouraged to do incentive spirometer Q2h while awake, worke with PT/OT and up into chair bid (2) Pulmonary hypertension: Code(s): I27.20 - Pulmonary hypertension, unspecified Status: Acute Assessment and Plan: Secondary to chronic hypoxemia and ILD - agree with lasix 40 mg daily as maintence therapy - keep O2 sats > 92% at all times - patient is not a candidated for vasodilator therapy or phosodiasterase inhibitors (3) Acute on chronic respiratory failure with hypoxemia: Code(s): J96.21 - Acute and chronic respiratory failure with hypoxia Status: Acute Subjective Date/time seen: 10/26/19 14:10 Interval history: Increased oxygen demands. oxygen up to 11 liters from 8 liters but he feels the same. Review of Systems Review of Systems: All systems reviewed & are unremarkable except as noted in HPI and below Exam Narrative: Exam Narrative: This 73 yo man has a zabrina complexion, improved. Const: General: no acute distress (He is able to speak in longer sentences. ) Eyes: General: appearance normal, both eyes and all related structures Neck: Neck: supple Resp: Auscultation: crackles (less prominent, 1/3 up both posterior lung ramos) bilateral Cardio: Rate: regular rate Rhythm: regular rhythm Skin: General skin exam: erythema Extrem: General: clubbing Psych: Mental Status: mental status grossly normal Objective Data Vital Signs Vital Signs: Vital Signs - 24 hr 10/25/19 16:00 10/25/19 18:00 10/25/19 19:25 Temperature 36.7 C Pulse Rate 66 80 Respiratory Rate 19 Blood Pressure 116/70 Pulse Oximetry 88 L 91 10/25/19 20:00 10/26/19 00:00 10/26/19 04:00 Temperature 36.1 C L 36.2 C L 36.1 C L Pulse Rate 78 68 64 Respiratory Rate 20 20 20 Blood Pressure 116/61 109/68 144/64 H Pulse Oximetry 90 93 96 10/26/19 07:55 10/26/19 08:00 10/26/19 08:10 Temperature Pulse Rate 64 66 Respiratory Rate Blood Pressure 125/76 Pulse Oximetry 92 10/26/19 08:53 10/26/19 12:00 Temperature Pulse Rate 87 Respiratory Rate Blood Pressure Pulse Oximetry 94 Intake/Output Intake/Output: Intake & Output 10/23/19 10/24/19 10/25/19 10/26/19 23:59 23:59 23:59 23:59 Intake Total 1020 1620 1815 1350 Output Total 2200 1500 1075 800 Balance -1180 120 740 550 Meds/Results Medications: Active Medications Generic Name Dose Route Start Last Admin Trade Name Freq PRN Reason Stop Dose Admin Albuterol 2 puff 10/17/19 19:25 10/25/19 19:22 Proventil Hfa INHALATION 2 puff QIDRT PRN Administration Shortness Of Breath Budesonide/Formoterol Fumarate 2 puff 10/19/19 20:00 10/26/19 08:59 Symbicort 160-4.5 Mcg Inhaler INHALATION 2 puff Q12HRT TESSA Administration Enoxaparin Sodium 40 mg 10/18/19 09:00 10/26/19 08:20 Lovenox SUB-Q 40 mg DAILY TESSA Administration Fluticasone Propionate
[2019-10-26] MEDS: SODIUM CHLORIDE NASAL GEL 14.1 GM 1 APPLIC NASAL (17:42)
[2019-10-26] MEDS: OXYMETAZOLINE HCL 0.05% NAS 15 ML BTL (*BKC) 1 SPRAY NASAL (19:22)
[2019-10-26 21:18] LABS: Scleroderma 70 Antibody <1.0
[2019-10-26] MEDS: MONTELUKAST SODIUM 10 MG TABLET PO (21:31)
--- NOTE | 2019-10-26 22:55 | PC.NURSE ---
Pt nose bleed is under control at this point in time no further bleeding 1934. Pt continuued with ice, mask obtained instead of nasal canula with bubbler. Afrin near pt in case needed again. Pt currently lying comfortably.
[2019-10-27] VITALS (12 sets, daily range): BP systolic 106–119; BP diastolic 63–68; PULSE 74–96; RESP 16–22; TEMP 36.1–36.8; O2SAT 90–95
[2019-10-27] MEDS: methylPREDNISolone SOD SUCC 125 MG VIAL 80 MG IV PUSH ×5 (01:33→23:55)
[2019-10-27] MEDS: ALBUTEROL SULFATE (*SP) AEROSOL 1 PUFF 2 PUFF INHALATION ×2 (02:47→09:44)
[2019-10-27 06:54] LABS: Hematocrit 59.7 % (42.0-52.0); Hemoglobin 20.3 g/dL (14.0-18.0); Mean Corpuscular Hemoglobin 36.4 pg (26-34); Platelet Count Result 151 k/mm3 (150-375); Red Blood Count 5.58 M/mm3 (4.6-6.20); Red Cell Distribution Width 14.3 % (11.5-14.5)
[2019-10-27 07:04] LABS: Blood Urea Nitrogen 44 mg/dL (9-20); Calcium 8.8 mg/dL (8.4-10.2); Carbon Dioxide 31 mmol/L (22-30); Chloride 94 mmol/L (98-107); Estimated CRCL calculation 64 ml/min; Estimated Glomerular Filt Rate > 60; Glucose 166 mg/dL (75-110); Potassium 4.7 mmol/L (3.4-5.0); Sodium 130 mmol/L (137-145)
[2019-10-27] MEDS: PANTOPRAZOLE SOD SESQUIHYDRATE 20 MG TAB PO (08:11)
[2019-10-27] MEDS: FLUTICASONE PROPIONATE 0.05% NA SPR 16 GM BTL (*BKC) 1 SPRAY NASAL ×2 (08:11→20:01)
[2019-10-27] MEDS: FUROSEMIDE 40 MG TABLET PO (08:11)
[2019-10-27] MEDS: LORATADINE 10 MG TABLET PO (08:11)
[2019-10-27] MEDS: BUDESONIDE/FORMOTEROL (*SP) 160-4.5 MCG 6 GM INH 2 PUFF INHALATION (09:45)
--- NOTE | 2019-10-27 10:24 | PM.PNPUL ---
Progress Note: A&P Assessment and Plan (1) ILD (interstitial lung disease): Code(s): J84.9 - Interstitial pulmonary disease, unspecified Status: Acute Assessment and Plan: UIP/IPF is less likely given CTA features but still possible. Autoimmune induced ILD is still possible as is occupational exposure. Medication induced is less likely. Hypersensistivity Pneumonitis is possible but no persistent chronic exposure in history other than the one time of bird droppings about six years ago. - Can go home on oxygen oxymizer at 8 liters at rest and 12 liters on exertion, keeping oxygen > 92% at all times - polycythemia likely due to chronic hypoxemia - CK normal, aldolase and Scl-70 pending - Will order HRCT with expiratory and prone imaging to help better classify ILD. - definitive diagnosis is only possible by VATS lung biopsy but he is no condition to have that currently - agree with oxygenation and diuretic management per Dr. Gonzalez - Will increase methylprednisilone to 80 mg IV Q6h - agree with adding Lasix 40 mg daily - encouraged to do incentive spirometer Q2h while awake, worke with PT/OT and up into chair bid (2) Pulmonary hypertension: Code(s): I27.20 - Pulmonary hypertension, unspecified Status: Acute Assessment and Plan: Secondary to chronic hypoxemia and ILD - agree with lasix 40 mg daily as maintence therapy - keep O2 sats > 92% at all times - patient is not a candidated for vasodilator therapy or phosodiasterase inhibitors (3) Acute on chronic respiratory failure with hypoxemia: Code(s): J96.21 - Acute and chronic respiratory failure with hypoxia Status: Acute Assessment and Plan: This is likely the cause of his polycythemia but other patholigic causes are being rule out - important to keep O2 sats > 92% at all times (4) Epistaxis: Code(s): R04.0 - Epistaxis Status: Acute Assessment and Plan: - due to oxygen per nasal cannula - switched to face mask last night - petroleum jelly to nares bid - avoid all anticoagulants and nasal sprays Subjective Date/time seen: 10/27/19 10:24 Interval history: Feels well. Switched to face mask because of nose bleed overnight. Humidified oxygen is being used. Currently on 10 liters and O2 sats are 89%. Must keep O2 sats > 92% at all times. Review of Systems Review of Systems: All systems reviewed & are unremarkable except as noted in HPI and below Exam Narrative: Exam Narrative: This 73 yo man has a zabrina complexion, improved. Const: General: no acute distress (He is able to speak in longer sentences. ) HENMT: General nose exam: Epistaxis present Eyes: General: appearance normal, both eyes and all related structures Neck: Neck: supple Resp: Auscultation: crackles (less prominent, 1/3 up both posterior lung ramos) bilateral Cardio: Rate: regular rate Rhythm: regular rhythm Skin: General skin exam: erythema Extrem: General: clubbing Psych: Mental Status: mental status grossly normal Objective Data Vital Signs Vital Signs: Vital Signs - 24 hr 10/26/19 12:00 10/26/19 14:00 10/26/19 16:00 Temperature 36.6 C Pulse Rate 87 76 90 Respiratory Rate 20 Blood Pressure 117/70 Pulse Oximetry 93 10/26/19 20:00 10/26/19 21:45 10/27/19 00:00 Temperature 36.3 C L 36.8 C Pulse Rate 78 77 Respiratory Rate 16 16 Blood Pressure 128/74 108/63 Pulse Oximetry 91 93 92 10/27/19 04:00 10/27/19 08:00 10/27/19 09:45 Temperature 36.7 C Pulse Rate 74 89 Respiratory Rate 18 Blood Pressure 112/68 Pulse Oximetry 91 91 10/27/19 10:10 Temperature Pulse Rate Respiratory Rate Blood Pressure Pulse Oximetry 93 Intake/Output Intake/Output: Intake & Output 10/24/19 10/25/19 10/26/19 10/27/19 23:59 23:59 23:59 23:59 Intake Total 1620 1815 2390 0 Output Total 1500 1075 1600 1200 Balance 120 740 790 -1200 Meds/Results Medications: Active Medications G
--- NOTE | 2019-10-27 11:25 | PCPTNOTE ---
The patient treatment was not able to be completed on 10/27/19, due to difficulty with O2 stats, even with O2 @ 15L. Will plan to continue treatment per plan of care.
--- NOTE | 2019-10-27 13:08 | PM.IMPN ---
Progress Note: A&P Assessment and Plan (1) Acute respiratory failure with hypoxia: Code(s): J96.01 - Acute respiratory failure with hypoxia Status: Acute Assessment and Plan: 10/27/19 13:08 More likely acute on chronic respiratory failure. Pulmonology consulted and appreciate input. CTA chest with no pulmonary embolism but chronic diffuse bilateral lung disease and findings suggestive of pulmonary hypertension. Discussed with pulmonology over the weekend. Still requiring high-flow oxygen therapy but down to 40 L with FiO2 of 70%. Urine Histoplasma antigen and hypersensitivity pneumonitis panels pending. Will continue IV steroids and IV Lasix. Will leave IV ceftriaxone and azithromycin in place for now. Continue Symbicort and montelukast. Will need additional evaluation once more stable. Will continue to monitor. Wean oxygen as tolerated. Will add PT/OT to help with mobility. Date of Service: 10/22/2019. Admitted with acute (probably acute on chronic) respiratory failure, chronic lung disease. Feeling a little bit better today. Unsure about shortness of breath but better than on admission. No chest pain or chest pressure. Does report cough has lessened with very little sputum production. Nasal congestion and drainage improved. No abdominal pain. No headache. Swelling in legs is gone. Patient is a 73-year-old male who presented emergency department with a complaint of shortness of breath and lower extremity swelling he was quite hypoxic and was saturating 83% on 4 L nasal cannula, patient is found to severe COPD interstitial lung disease and severe pulmonary hypertension patient is requiring 12 L of oxygen high-flow nasal cannula, and with slight exertion he desaturates, seen by Dr. Gonzalez patient is being treated with Lasix bronchodilator inhaled steroid, patient's symptoms are stable, patient is being diuresed however patient kidney function is getting dry we are holding patient's Lasix, chest x-ray showed some improvement in pulmanary edema, again patient's symptoms are stable presently plan is to wean the patient off high-flow oxygen before discharging home, patient erythrocytosis is seen by hematalogist suspect 2/2 hypoxemia or polycythemia vera recommending phlebotomy 500 cc, weekly this will be done as outpatient, today patient is feeling much better not a short of breath, on 10/25 communicated with slag production worker as patient requring more oxygen will add lasix 40mg PO daily, and start low sodium diet, will continue to monitor patient overall symptoms have improved he is still requiring less oxygen now on 8 L compared to 12 L initially will continue to wean the patient off high-flow oxygen, patient will be seen by slag production worker and further recommendation to follow, Patient had an episode of epistaxis last night most like from irritation of nasal mucosa due NC, patient is on face mask now and will avoid anticoagulation. (2) Chronic obstructive pulmonary disease: Qualifiers: COPD type: unspecified COPD Qualified Code(s): J44.9 - Chronic obstructive pulmonary disease, unspecified Code(s): J44.9 - Chronic obstructive pulmonary disease, unspecified Status: Acute Assessment and Plan: Pulmonology consulted and appreciate input as noted above. Remains on IV steroids with IV antibiotics in place as noted. Continue Symbicort and montelukast. Remains on high-flow oxygen therapy but will continue to wean as tolerated. Will most likely need home oxygen evaluation when ready for discharge. (3) Congestive heart failure: Qualifiers: Heart failure type: diastolic Heart failure chronicity: acute on chronic Qualified Code(s): I50.33 - Acute on chronic diastolic (congestive) heart failure Code(s): I50.9 - Heart failure, unspecified Status: Acute Assessment and Plan: Echocardiogram with EF 55-60%, grade 1 diastolic dysfunction right ventricular systolic function severely
[2019-10-27] MEDS: MONTELUKAST SODIUM 10 MG TABLET PO (20:01)
[2019-10-28] VITALS (15 sets, daily range): BP systolic 103–120; BP diastolic 56–71; PULSE 72–95; RESP 16–22; TEMP 36.1–36.9; O2SAT 90–94
[2019-10-28 06:16] LABS: Hematocrit 55.6 % (42.0-52.0); Hemoglobin 19.1 g/dL (14.0-18.0); Mean Corpuscular HGB Conc 34.4 g/dl (32-36); Mean Corpuscular Hemoglobin 36.3 pg (26-34); Mean Corpuscular Volume 105.7 fl (80-100); Mean Platelet Volume 11.5 fl (7.4-10.4); Platelet Count Result 145 k/mm3 (150-375); Red Blood Count 5.26 M/mm3 (4.6-6.20); Red Cell Distribution Width 14.3 % (11.5-14.5); White Blood Count 15.3 K/mm3 (4.5-10.0)
[2019-10-28] MEDS: methylPREDNISolone SOD SUCC 125 MG VIAL 80 MG IV PUSH ×4 (06:18→23:54)
[2019-10-28 07:41] LABS: Blood Urea Nitrogen 42 mg/dL (9-20); Calcium 8.5 mg/dL (8.4-10.2); Carbon Dioxide 32 mmol/L (22-30); Chloride 94 mmol/L (98-107); Estimated CRCL calculation 81 ml/min; Estimated Glomerular Filt Rate > 60; Glucose 162 mg/dL (75-110); Potassium 4.5 mmol/L (3.4-5.0); Sodium 131 mmol/L (137-145)
[2019-10-28] MEDS: FUROSEMIDE 40 MG TABLET PO (08:31)
[2019-10-28] MEDS: LORATADINE 10 MG TABLET PO (08:31)
[2019-10-28] MEDS: PANTOPRAZOLE SOD SESQUIHYDRATE 20 MG TAB PO (08:31)
[2019-10-28] MEDS: FLUTICASONE PROPIONATE 0.05% NA SPR 16 GM BTL (*BKC) 1 SPRAY NASAL ×2 (08:31→20:02)
--- NOTE | 2019-10-28 10:50 | PC.NURSE ---
DRU Patel from the cancer center at bedside performing phlebotomy procedure. Consent signed by patient prior to procedure.
[2019-10-28] MEDS: SODIUM CHLORIDE 0.9% IV 500 ML IV CONT (11:23)
--- NOTE | 2019-10-28 12:59 | PCPTNOTE ---
The PT treatment was held today due to low SpO2. Will continue per Plan of Care frequency and duration.
--- NOTE | 2019-10-28 13:30 | PC.NURSE ---
Phlebotomy performed from the right wrist and obtained 500 ml of blood. Patient tolerated well. Procedure explained to the patient before performing with understandind stated.
--- NOTE | 2019-10-28 15:37 | PM.PNPUL ---
Progress Note: A&P Assessment and Plan (1) ILD (interstitial lung disease): Code(s): J84.9 - Interstitial pulmonary disease, unspecified Status: Acute Assessment and Plan: UIP/IPF is less likely given CTA features but still possible. Autoimmune induced ILD is still possible as is occupational exposure. Medication induced is less likely. Hypersensistivity Pneumonitis is possible but no persistent chronic exposure in history other than the one time of bird droppings about six years ago. - Can go home on oxygen oxymizer at 8 liters at rest and 12 liters on exertion, keeping oxygen > 92% at all times - polycythemia likely due to chronic hypoxemia with low EPO level; JAK2 panel is pending, and he started phlebotomy today. - CK normal, aldolase and Scl-70 pending - repeat HRCT with expiratory and prone imaging to help better classify ILD October 23 results above - UIP v NSIP.. - definitive diagnosis is only possible by VATS lung biopsy but he is no condition to have that currently - agree with oxygenation and diuretic management. - Will wean methylprednisilone to 60 mg IV Q8h - agree with adding Lasix 40 mg daily - encouraged to do incentive spirometer Q2h while awake, working with PT/OT and up into chair bid (2) Pulmonary hypertension: Code(s): I27.20 - Pulmonary hypertension, unspecified Status: Acute Assessment and Plan: Secondary to chronic hypoxemia and ILD - agree with lasix 40 mg daily as maintence therapy - keep O2 sats > 92% at all times - patient is not a candidated for vasodilator therapy or phosodiasterase inhibitors (3) Acute on chronic respiratory failure with hypoxemia: Code(s): J96.21 - Acute and chronic respiratory failure with hypoxia Status: Acute Assessment and Plan: This is likely the cause of his polycythemia but other patholigic causes are being rule out - important to keep O2 sats > 92% at all times (4) Epistaxis: Code(s): R04.0 - Epistaxis Status: Acute Assessment and Plan: - due to oxygen per nasal cannula - remains on face mask since October 25 when he had a huge nosebleed - petroleum jelly to nares bid - avoid all anticoagulants and nasal sprays, although he will need to be on baby asa for his erythrocytosis. Subjective Date/time seen: 10/28/19 15:37 Interval history: This 73 yo man feels better, is seen for acute on chronic resp failure with ILD. On Monday night, he was switched to face mask because of nose bleed, on humidified oxygen is being used. He still has nasal congestion on shana left nostril, and he is careful not to disturb the drainage and crusting for fear of starting bleeding again. Currently on 10 liters and O2 sats are 89%. Must keep O2 sats > 92% at all times. He says he is tired of being in the hospital, 11 days, and wants to go home with any acceptable amount of O2 that can be arranged. He had 500 ml phlebotomy today for his erythrocytosis with increasing shortness of breath, and dropped his saturation during the process. Review of Systems Review of Systems: All systems reviewed & are unremarkable except as noted in HPI and below Constitutional: Constitutional: Reports fatigue and Reports weakness ENT: Reports nasal congestion (much less) and Reports nasal discharge (decreased) Cardiovascular: Cardiovascular: Denies chest pain and Reports leg edema (improved dramatically) Neurologic: Reports weakness Endocrine: Endocrine: Reports fatigue Exam Narrative: Exam Narrative: This 73 yo man has a zabrina complexion, improved. Const: General: no acute distress (He is able to speak in longer sentences. ) HENMT: General nose exam: Epistaxis present Eyes:
--- NOTE | 2019-10-28 17:03 | PM.IMPN ---
Progress Note: A&P Assessment and Plan (1) Acute respiratory failure with hypoxia: Code(s): J96.01 - Acute respiratory failure with hypoxia Status: Acute Assessment and Plan: 10/28/19 17:03 More likely acute on chronic respiratory failure. Pulmonology consulted and appreciate input. CTA chest with no pulmonary embolism but chronic diffuse bilateral lung disease and findings suggestive of pulmonary hypertension. Discussed with pulmonology over the weekend. Still requiring high-flow oxygen therapy but down to 40 L with FiO2 of 70%. Urine Histoplasma antigen and hypersensitivity pneumonitis panels pending. Will continue IV steroids and IV Lasix. Will leave IV ceftriaxone and azithromycin in place for now. Continue Symbicort and montelukast. Will need additional evaluation once more stable. Will continue to monitor. Wean oxygen as tolerated. Will add PT/OT to help with mobility. Date of Service: 10/22/2019. Admitted with acute (probably acute on chronic) respiratory failure, chronic lung disease. Feeling a little bit better today. Unsure about shortness of breath but better than on admission. No chest pain or chest pressure. Does report cough has lessened with very little sputum production. Nasal congestion and drainage improved. No abdominal pain. No headache. Swelling in legs is gone. Patient is a 73-year-old male who presented emergency department with a complaint of shortness of breath and lower extremity swelling he was quite hypoxic and was saturating 83% on 4 L nasal cannula, patient is found to severe COPD interstitial lung disease and severe pulmonary hypertension patient is requiring 12 L of oxygen high-flow nasal cannula, and with slight exertion he desaturates, seen by Dr. Gonzalez patient is being treated with Lasix bronchodilator inhaled steroid, patient's symptoms are stable, patient is being diuresed however patient kidney function is getting dry we are holding patient's Lasix, chest x-ray showed some improvement in pulmanary edema, again patient's symptoms are stable presently plan is to wean the patient off high-flow oxygen before discharging home, patient erythrocytosis is seen by hematalogist suspect 2/2 hypoxemia or polycythemia vera recommending phlebotomy 500 cc, weekly this will be done as outpatient, today patient is feeling much better not a short of breath, on 10/25 communicated with network engineering advisor as patient requring more oxygen will add lasix 40mg PO daily, and start low sodium diet, will continue to monitor patient overall symptoms have improved he is still requiring less oxygen now on 8 L compared to 12 L initially will continue to wean the patient off high-flow oxygen, patient will be seen by network engineering advisor and further recommendation to follow, Patient had an episode of epistaxis on 10/24 most like from irritation of nasal mucosa due NC, patient is on face mask now and will avoid anticoagulation. patient is still requring high flow 10l O2, D/W Dr. Avery his nurse will come to the hospital do the phlebotomy today, will follow up and plan. (2) Chronic obstructive pulmonary disease: Qualifiers: COPD type: unspecified COPD Qualified Code(s): J44.9 - Chronic obstructive pulmonary disease, unspecified Code(s): J44.9 - Chronic obstructive pulmonary disease, unspecified Status: Acute Assessment and Plan: Pulmonology consulted and appreciate input as noted above. Remains on IV steroids with IV antibiotics in place as noted. Continue Symbicort and montelukast. Remains on high-flow oxygen therapy but will continue to wean as tolerated. Will most likely need home oxygen evaluation when ready for discharge. (3) Congestive heart failure: Qualifiers: Heart failure type: diastolic Heart failure chronicity: acute on chronic Qualified Code(s): I50.33 - Acute on chronic diastolic (congestive) heart failure Code(s): I50.9 - Heart failure, unspecified Status:
--- NOTE | 2019-10-28 17:11 | WPDONCPN ---
Progress Note: A/P - Additional Plan Erythrocytosis. JAK2 mutation testing is pending. Due to patient worsening shortness of breath we will proceed with inpatient phlebotomy of 500 cc today. Patient will continue aspirin. I plan to see him back in the office in 1 week for continuation of phlebotomy to keep hematocrit less than 45. I have discussed this case with Dr. Don today - Time Spent With Patient Total time spent is greater than 50% in coordination of care (as documented) at patient's floor/unit and/or counseling patient: 15 - 25 minutes Subjective Interval history: Erythrocytosis Chronic hypoxemia of unclear etiology Review of Systems - Review of Systems Patient complain of some shortness of breath. He denies any chest pain. Denies any fevers and chills. No other new complaints. - Neurologic Reports weakness, Denies confusion, Denies headache(s), Denies numbness Exam Vital signs: Crystal Grant. Assessment of coma and impaired consciousness. A practical scale. Lancet 1974; 2:81-4. Narrative: Lungs are clear to auscultation bilaterally Cardiovascular regular rate rhythm no murmurs Abdomen soft nontender nondistended bowel sounds are positive Extremities no edema PN: Objective Data - Labs CBC & Chem 7: 10/28/19 05:06 10/28/19 05:06 Labs: Laboratory Results - last 24 hr 10/28/19 10/28/19 05:06 05:06 WBC 15.3 H RBC 5.26 Hgb 19.1 H Hct 55.6 H MCV 105.7 H MCH 36.3 H MCHC 34.4 RDW 14.3 Plt Count 145 L MPV 11.5 H Sodium 131 L Potassium 4.5 Chloride 94 L Carbon Dioxide 32 H BUN 42 H Creatinine 0.70 Estim Creat Clear Calc 81 Estimated GFR > 60 Glucose 162 H Calcium 8.5
[2019-10-28] MEDS: MONTELUKAST SODIUM 10 MG TABLET PO (20:02)
[2019-10-29] VITALS (10 sets, daily range): BP systolic 92–114; BP diastolic 47–73; PULSE 79–93; RESP 16–23; TEMP 36.3–36.8; O2SAT 90–93
[2019-10-29 00:21] LABS: Aldolase 9.2 U/L (<=8.1)
[2019-10-29] MEDS: methylPREDNISolone SOD SUCC 125 MG VIAL 80 MG IV PUSH ×4 (05:57→23:58)
[2019-10-29 06:33] LABS: Basophils Percent Auto 0.2 % (0.2-1.2); Hematocrit 52.4 % (42.0-52.0); Hemoglobin 17.9 g/dL (14.0-18.0); Immature Granulocyte Absolute 0.11 K/mm3 (0.00-0.031); Immature Granulocyte Percent A 0.6 % (0-0.5); Lymphocytes Absolute Auto 1.09 K/mm3 (0.9-3.2); Lymphocytes Percent Auto 6.1 % (18.3-44.2); Mean Corpuscular HGB Conc 34.2 g/dl (32-36); Mean Corpuscular Hemoglobin 35.4 pg (26-34); Mean Corpuscular Volume 103.8 fl (80-100); Mean Platelet Volume 11.6 fl (7.4-10.4); Monocytes Absolute Auto 0.9 K/mm3 (0.1-0.6); Monocytes Percent Auto 5.1 % (2.6-8.5); Neutrophils Absolute Auto 15.7 K/mm3 (1.3-6.7); Platelet Count Result 141 k/mm3 (150-375); Red Blood Count 5.05 M/mm3 (4.6-6.20); Red Cell Distribution Width 14.1 % (11.5-14.5); White Blood Count 17.9 K/mm3 (4.5-10.0)
[2019-10-29] MEDS: LORATADINE 10 MG TABLET PO (08:17)
[2019-10-29] MEDS: FUROSEMIDE 40 MG TABLET PO (08:17)
[2019-10-29] MEDS: PANTOPRAZOLE SOD SESQUIHYDRATE 20 MG TAB PO (08:17)
[2019-10-29] MEDS: FLUTICASONE PROPIONATE 0.05% NA SPR 16 GM BTL (*BKC) 1 SPRAY NASAL ×2 (08:17→21:37)
[2019-10-29 13:02] LABS: CALR Exon 9 Mutation Not Detected (Not Detected); CSF3R Exon 14/17 Mutation Not Detected (Not Detected); JAK2 Exon 12 Mutation Not Detected (Not Detected); JAK2 V617F Mutation Not Detected (Not Detected); MPL Exon 10 Mutation Not Detected (Not Detected); Specimen Source Blood
--- NOTE | 2019-10-29 13:52 | PCOTNOTE ---
Attempted to see patient this afternoon. Patient sitting in chair upon entry, receiving respiratory. When asked if patient would like to participate in skilled OT session patient declined, waved hand stating I don't need that, the nurse is going to help me with that later. Practitioner talked with patient and asked once more if patient would like to participate in session, patient declined. Patient refuses OT session this date.
--- NOTE | 2019-10-29 15:12 | PM.IMPN ---
Progress Note: A&P Assessment and Plan (1) Acute respiratory failure with hypoxia: Code(s): J96.01 - Acute respiratory failure with hypoxia Status: Acute Assessment and Plan: 10/29/19 15:12 More likely acute on chronic respiratory failure. Pulmonology consulted and appreciate input. CTA chest with no pulmonary embolism but chronic diffuse bilateral lung disease and findings suggestive of pulmonary hypertension. Discussed with pulmonology over the weekend. Still requiring high-flow oxygen therapy but down to 40 L with FiO2 of 70%. Urine Histoplasma antigen and hypersensitivity pneumonitis panels pending. Will continue IV steroids and IV Lasix. Will leave IV ceftriaxone and azithromycin in place for now. Continue Symbicort and montelukast. Will need additional evaluation once more stable. Will continue to monitor. Wean oxygen as tolerated. Will add PT/OT to help with mobility. Date of Service: 10/22/2019. Admitted with acute (probably acute on chronic) respiratory failure, chronic lung disease. Feeling a little bit better today. Unsure about shortness of breath but better than on admission. No chest pain or chest pressure. Does report cough has lessened with very little sputum production. Nasal congestion and drainage improved. No abdominal pain. No headache. Swelling in legs is gone. Patient is a 73-year-old male who presented emergency department with a complaint of shortness of breath and lower extremity swelling he was quite hypoxic and was saturating 83% on 4 L nasal cannula, patient is found to severe COPD interstitial lung disease and severe pulmonary hypertension patient is requiring 12 L of oxygen high-flow nasal cannula, and with slight exertion he desaturates, seen by Dr. Gonzalez patient is being treated with Lasix bronchodilator inhaled steroid, patient's symptoms are stable, patient is being diuresed however patient kidney function is getting dry we are holding patient's Lasix, chest x-ray showed some improvement in pulmanary edema, again patient's symptoms are stable presently plan is to wean the patient off high-flow oxygen before discharging home, patient erythrocytosis is seen by hematalogist suspect 2/2 hypoxemia or polycythemia vera recommending phlebotomy 500 cc, weekly this will be done as outpatient, today patient is feeling much better not a short of breath, on 10/25 communicated with flotation tender helper as patient requring more oxygen will add lasix 40mg PO daily, and start low sodium diet, will continue to monitor patient overall symptoms have improved he is still requiring less oxygen now on 8 L compared to 12 L initially will continue to wean the patient off high-flow oxygen, patient is seen by flotation tender helper and further recommendation to follow, Patient had an episode of epistaxis on 10/24 most like from irritation of nasal mucosa due NC, patient is on face mask now and will avoid anticoagulation. patient is still requring high flow 10l O2, on 10/27 D/W Dr. Avery and had phlebotomy 500cc was collected and will require weekly to keep his hemocrit clost to 45, today patient still requiring high-flow oxygen symptoms gets worse with exertion, patient wants to go home and considering palliative care we have discussed this with the urgent care further planning. (2) Chronic obstructive pulmonary disease: Qualifiers: COPD type: unspecified COPD Qualified Code(s): J44.9 - Chronic obstructive pulmonary disease, unspecified Code(s): J44.9 - Chronic obstructive pulmonary disease, unspecified Status: Acute Assessment and Plan: Pulmonology consulted and appreciate input as noted above. Remains on IV steroids with IV antibiotics in place as noted. Continue Symbicort and montelukast. Remains on high-flow oxygen therapy but will continue to wean as tolerated. Will most likely need home oxygen evaluation when ready for discharge. (3) Congestive heart failure: Qualifiers: He
--- NOTE | 2019-10-29 18:09 | P.PNPL_ITS ---
Progress Note: A&P Assessment and Plan (1) ILD (interstitial lung disease): Code(s): J84.9 - Interstitial pulmonary disease, unspecified Status: Acute Assessment and Plan: UIP/IPF is less likely given CTA features but still possible. Autoimmune induced ILD is still possible as is occupational exposure. Medication induced is less likely. Hypersensistivity Pneumonitis is possible but no persistent chronic exp osure in history other than the one time of bird droppings about six years ago. - Can go home on oxygen oxymizer at 8 liters at rest and 12 liters on exertion, keeping oxygen > 92% at all times - polycythemia likely due to chronic hypoxemia with low EPO level; JAK2 panel is pending, and he started phlebotomy today. - CK normal, aldolase and Scl-70 pending - repeat HRCT with expiratory and prone imaging to help better classify ILD October 23 results above - UIP v NSIP.. - definitive diagnosis is only possible by VATS lung biopsy but he is no condition to have that currently - agree with oxygenation and diuretic management. - Will wean methylprednisilone to 60 mg IV Q8h - agree with adding Lasix 40 mg daily - encouraged to do incentive spirometer Q2h while awake, working with PT/OT and up into chair bid (2) Pulmonary hypertension: Code(s): I27.20 - Pulmonary hypertension, unspecified Status: Acute Assessment and Plan: Secondary to chronic hypoxemia and ILD - agree with lasix 40 mg daily as maintence therapy - keep O2 sats > 92% at all times - patient is not a candidated for vasodilator therapy or phosodiasterase inhibitors (3) Acute on chronic respiratory failure with hypoxemia: Code(s): J96.21 - Acute and chronic respiratory failure with hypoxia Status: Acute Assessment and Plan: This is likely the cause of his polycythemia but other patholigic causes are being rule out - important to keep O2 sats > 92% at all times (4) Epistaxis: Code(s): R04.0 - Epistaxis Status: Acute Assessment and Plan: - due to oxygen per nasal cannula - remains on face mask since October 25 when he had a huge nosebleed - petroleum jelly to nares bid - avoid all anticoagulants and nasal sprays, although he will need to be on baby asa for his erythrocytosis. Subjective Date/time seen: 10/29/19 18:09 Interval history: This 73 yo man feels better, is seen for acute on chronic resp failure with ILD. On Monday night, he was switched to face mask because of nose bleed, on humidified oxygen is being used. He still has nasal congestion on shana left nostril, and he is careful not to disturb the drainage and crusting for fear of starting bleeding again. Currently on 10 liters and O2 sats are 89%. Must keep O2 sats > 92% at all times. He says he is tired of being in the hospital, 11 days, and wants to go home with any acceptable amount of O2 that can be arranged. He had 500 ml phlebotomy today for his erythrocytosis with increasing shortness of breath, and dropped his saturation during the process. Review of Systems Review of Systems: All systems reviewed & are unremarkable except as noted in HPI and below Constitutional: Constitutional: Reports fatigue and Reports weakness ENT: Reports nasal congestion (much less) and Reports nasal discharge (decreased) Cardiovascular: Cardiovascular: Denies chest pain and Repor
[2019-10-29] MEDS: MONTELUKAST SODIUM 10 MG TABLET PO (21:38)
[2019-10-30] VITALS (27 sets, daily range): BP systolic 90–121; BP diastolic 61–72; PULSE 73–100; RESP 16–24; TEMP 36.2–36.8; O2SAT 87–98
[2019-10-30] MEDS: methylPREDNISolone SOD SUCC 125 MG VIAL 80 MG IV PUSH ×3 (06:29→18:22)
[2019-10-30] MEDS: FLUTICASONE PROPIONATE 0.05% NA SPR 16 GM BTL (*BKC) 1 SPRAY NASAL ×2 (08:18→20:00)
[2019-10-30] MEDS: LORATADINE 10 MG TABLET PO (08:18)
[2019-10-30] MEDS: FUROSEMIDE 40 MG TABLET PO (08:18)
[2019-10-30] MEDS: PANTOPRAZOLE SOD SESQUIHYDRATE 20 MG TAB PO (08:18)
--- NOTE | 2019-10-30 12:25 | PCOTNOTE ---
Attempted to see patient this P.M. Patient was sitting up in chair upon entry finishing lunch. When asked if patient would like to participate in OT session, patient stated I already did one therapy. I ain't doing that, you're killing me . Patient refused skilled OT session this date.
--- NOTE | 2019-10-30 13:05 | PM.IMPN ---
Progress Note: A&P Assessment and Plan (1) Acute respiratory failure with hypoxia: Code(s): J96.01 - Acute respiratory failure with hypoxia Status: Acute Assessment and Plan: 10/30/19 13:05 More likely acute on chronic respiratory failure. Pulmonology consulted and appreciate input. CTA chest with no pulmonary embolism but chronic diffuse bilateral lung disease and findings suggestive of pulmonary hypertension. Discussed with pulmonology over the weekend. Still requiring high-flow oxygen therapy but down to 40 L with FiO2 of 70%. Urine Histoplasma antigen and hypersensitivity pneumonitis panels pending. Will continue IV steroids and IV Lasix. Will leave IV ceftriaxone and azithromycin in place for now. Continue Symbicort and montelukast. Will need additional evaluation once more stable. Will continue to monitor. Wean oxygen as tolerated. Will add PT/OT to help with mobility. Date of Service: 10/22/2019. Admitted with acute (probably acute on chronic) respiratory failure, chronic lung disease. Feeling a little bit better today. Unsure about shortness of breath but better than on admission. No chest pain or chest pressure. Does report cough has lessened with very little sputum production. Nasal congestion and drainage improved. No abdominal pain. No headache. Swelling in legs is gone. Patient is a 73-year-old male who presented emergency department with a complaint of shortness of breath and lower extremity swelling he was quite hypoxic and was saturating 83% on 4 L nasal cannula, patient is found to severe COPD interstitial lung disease and severe pulmonary hypertension patient is requiring 12 L of oxygen high-flow nasal cannula, and with slight exertion he desaturates, seen by Dr. Gonzalez patient is being treated with Lasix bronchodilator inhaled steroid, patient's symptoms are stable, patient is being diuresed however patient kidney function is getting dry we are holding patient's Lasix, chest x-ray showed some improvement in pulmanary edema, again patient's symptoms are stable presently plan is to wean the patient off high-flow oxygen before discharging home, patient erythrocytosis is seen by hematalogist suspect 2/2 hypoxemia or polycythemia vera recommending phlebotomy 500 cc, weekly this will be done as outpatient, today patient is feeling much better not a short of breath, on 10/25 communicated with channel marketing program manager as patient requring more oxygen will add lasix 40mg PO daily, and start low sodium diet, will continue to monitor patient overall symptoms have improved he is still requiring less oxygen now on 8 L compared to 12 L initially will continue to wean the patient off high-flow oxygen, patient is seen by channel marketing program manager and further recommendation to follow, Patient had an episode of epistaxis on 10/24 most like from irritation of nasal mucosa due NC, patient is on face mask now and will avoid anticoagulation. patient is still requring high flow 10l O2, on 10/27 D/W Dr. Avery and had phlebotomy 500cc was collected and will require weekly to keep his hemocrit clost to 45, today patient still requiring high-flow oxygen symptoms gets worse with exertion, patient wants to go home and considering palliative care we have discussed this with the child care leader further planning. Patient is currently on Ventimask and requiring to a L of oxygen, patient cannot be discharged on such high concentration of oxygen, will switch him over to nasal cannula and wean him off below 10 L to maintain his oxygen, if your able to maintain patient oxygen below 10 L begin possibly discharge the patient home with comfort care. (2) Chronic obstructive pulmonary disease: Qualifiers: COPD type: unspecified COPD Qualified Code(s): J44.9 - Chronic obstructive pulmonary disease, unspecified Code(s): J44.9 - Chronic obstructive pulmonary disease, unspecified Status: Acute Assessment and Plan: Pulmonology consulted and alia
--- NOTE | 2019-10-30 15:29 | PM.PNPUL ---
Progress Note: A&P Assessment and Plan (1) ILD (interstitial lung disease): Code(s): J84.9 - Interstitial pulmonary disease, unspecified Status: Acute Assessment and Plan: UIP/IPF is less likely given CTA features but still possible. Autoimmune induced ILD is still possible as is occupational exposure. Medication induced is less likely. Hypersensistivity Pneumonitis is possible but no persistent chronic exposure in history other than the one time of bird droppings about six years ago. - Can go home on oxygen oxymizer at 7 liters at rest and 10 liters on exertion, keeping oxygen > 92% at all times - polycythemia likely due to chronic hypoxemia with low EPO level; JAK2 panel is negative. He started phlebotomy 10/27. - CK normal, aldolase and Scl-70 pending - repeat HRCT with expiratory and prone imaging to help better classify ILD October 23 results above - UIP v NSIP.. - definitive diagnosis is only possible by VATS lung biopsy but he is no condition to have that currently - agree with oxygenation and diuretic management. - Will wean methylprednisilone to 40 mg IV Q8h tonight nad see about converting to oral later tomorrow. - agree with continuing Lasix 40 mg daily - encouraged to do incentive spirometer Q2h while awake, working with PT/OT and up into chair bid (2) Pulmonary hypertension: Code(s): I27.20 - Pulmonary hypertension, unspecified Status: Acute Assessment and Plan: Secondary to chronic hypoxemia and ILD - agree with lasix 40 mg daily as maintence therapy - keep O2 sats > 92% at all times - patient is not a candidate for vasodilator therapy or phosodiesterase inhibitors (3) Acute on chronic respiratory failure with hypoxemia: Code(s): J96.21 - Acute and chronic respiratory failure with hypoxia Status: Acute Assessment and Plan: This is likely the cause of his polycythemia but other patholigic causes are being rule out - important to keep O2 sats > 92% at all times (4) Epistaxis: Code(s): R04.0 - Epistaxis Status: Acute Assessment and Plan: - due to oxygen per nasal cannula - remains on face mask since October 25 when he had a huge nosebleed - petroleum jelly to nares bid - avoid all anticoagulants and nasal sprays, although he will need to be on baby asa for his erythrocytosis. Subjective Date/time seen: 10/30/19 15:29 This 73 yo man with ILD , acute hypoxmeic resp failure, polycythemia, says that he wants to go home today. He is not sleeping well in the hospital. shortly after 3 pm, he had a home O2 evaluation , and needs 7 L/min at rest, 10 L/min with exeriton. He has a huge dose of steroids right now, 80 mg IV Q 8 hours, which is equal to 400 mg prednisone. We will reduce the dose of IV and start oral soon. The current dose is too high to convert to oral. If we drop too much too fast, he will have an adrenal crisis. I conferred with Dr Don and he agrees. Review of Systems Review of Systems: All systems reviewed & are unremarkable except as noted in HPI and below Constitutional: Constitutional: Reports fatigue and Reports weakness ENT: Reports nasal congestion (much less) and Reports nasal discharge (decreased) Cardiovascular: Cardiovascular: Denies chest pain and Reports leg edema (improved dramatically) Neurologic: Reports weakness Endocrine: Endocrine: Reports fatigue Exam Narrative: Exam Narrative: This 73 yo man has a zabrina complexion, improved. Const: General: no acute distress ( ) Eyes: General: appearance normal, both eyes and all related structures Neck: Neck: supple Resp: Auscultation: crackles (less prominent, 1/3 up both posterior lung ramos) bilateral Car
--- NOTE | 2019-10-30 16:33 | HOMEO2EVAL ---
Home Oxygen Evaluation RC: Home Oxygen (O2) Evaluation Start: 10/30/19 15:33 Freq: ONCE Status: Active Protocol: RPE Activity Type Activity Date Activity User E-Sign Co-Sign Detail Recorded Client Recorded Date Recorded By Document 10/30/19 13:45 HARVINDER [email or web address] 10/30/19 16:33 HARVINDER Document 10/30/19 13:47 HARVINDER [email or web address] 10/30/19 16:33 HARVINDER Document 10/30/19 13:49 HARVINDER [email or web address] 10/30/19 16:33 HARVINDER Document 10/30/19 13:51 HARVINDER [email or web address] 10/30/19 16:33 HARVINDER Document 10/30/19 13:53 HARVINDER [email or web address] 10/30/19 16:33 HARVINDER Document 10/30/19 13:55 HARVINDER [email or web address] 10/30/19 16:33 HARVINDER Document 10/30/19 13:57 HARVINDER [email or web address] 10/30/19 16:33 HARVINDER Document 10/30/19 14:00 HARVINDER [email or web address] 10/30/19 16:33 HARVINDER Document 10/30/19 14:03 HARVINDER [email or web address] 10/30/19 16:33 HARVINDER Document 10/30/19 14:05 HARVINDER [email or web address] 10/30/19 16:33 HARVINDER Document 10/30/19 14:08 HARVINDER [email or web address] 10/30/19 16:33 HARVINDER Document 10/30/19 14:15 HARVINDER [email or web address] 10/30/19 16:33 HARVINDER 10/30/19 10/30/19 10/30/19 13:45 13:47 13:49 Home O2 Evaluation Test Phase Resting Resting Resting Oxygen Delivery Room Air High Flow Nasal High Flow Nasal Cannula Cannula Oxygen Flow Rate (L/min) 2 3 Pulse Oximetry (90-100 %) 87 L 87 L 87 L Home Oxygen Evaluation Comments Treatment Charges O2 Evaluation 10/30/19 10/30/19 10/30/19 13:51 13:53 13:55 Home O2 Evaluation Test Phase Resting Resting Resting Oxygen Delivery High Flow Nasal High Flow Nasal High Flow Nasal Cannula Cannula Cannula Oxygen Flow Rate (L/min) 4 5 6 Pulse Oximetry (90-100 %) 87 L 87 L 87 L Home Oxygen Evaluation Comments Treatment Charges 10/30/19 10/30/19 10/30/19 13:57 14:00 14:03 Home O2 Evaluation Test Phase Resting Exercise Exercise Oxygen Delivery High Flow Nasal High Flow Nasal High Flow Nasal Cannula Cannula Cannula Oxygen Flow Rate (L/min) 7 7 8 Pulse Oximetry (90-100 %) 92 87 L 87 L Home Oxygen Evaluation Comments Treatment Charges 10/30/19 10/30/19 10/30/19 14:05 14:08 14:15 Home O2 Evaluation Test Phase Exercise Exercise Resting Oxygen Delivery High Flow Nasal High Flow Nasal High Flow Nasal Cannula Cannula Cannula Oxygen Flow Rate (L/min) 9 10 7 Pulse Oximetry (90-100 %) 87 L 89 L 93 Home Oxygen Evaluation Comments PT REQUIRES 7 L AT REST AND 10 L WITH ACTIVITY Treatment Charges
--- NOTE | 2019-10-30 17:07 | WPDONCPN ---
Progress Note: A/P - Additional Plan Secondary erythrocytosis. JAK2 mutation came back negative. This is likely secondary to interstitial lung disease. Hemoglobin has improved after phlebotomy. Patient will continue aspirin. We plan to perform another round of full body as an outpatient to keep hematocrit less than 45. I will follow with the patient in the office. Interstitial lung disease. Patient is on oxygen and has been under the care of Dr. Diana Gonzalez. - Time Spent With Patient Total time spent is greater than 50% in coordination of care (as documented) at patient's floor/unit and/or counseling patient: 15 - 25 minutes Subjective Interval history: Erythrocytosis Chronic hypoxemia of unclear etiology Review of Systems - Review of Systems Patient is sitting comfortably. He denies any chest pain. He does have some shortness of breath and using morphine. Denies any fevers and chills. His skin color has improved after phlebotomy. No other new complaints. - Neurologic Reports weakness, Denies confusion, Denies headache(s), Denies numbness Exam Vital signs: Crystal Grant. Assessment of coma and impaired consciousness. A practical scale. Lancet 1974; 2:81-4. Narrative: Lungs are clear to auscultation bilaterally Cardiovascular regular rate rhythm no murmurs Abdomen soft nontender nondistended bowel sounds are positive Extremities no edema PN: Objective Data - Labs CBC & Chem 7: 10/29/19 05:03 10/28/19 05:06
--- NOTE | 2019-10-30 17:14 | PCRCNOTE ---
PHYSICAL ADDRESS IS [address] [place] PAYAL CHATMAN FROM [facility] WILL BE EXPECTING A CALL WHEN PT LEAVES HOSPITAL FOR PROMPT ARRANGEMENT WITH [employer] TO MEET AT THE HOME. PT HAS KIP # WELL THE NURSE AND IT IS ON THE O2 ORDER
--- NOTE | 2019-10-30 18:32 | P.DS_ITS ---
DS: Admitting Diagnosis Admitting Diagnosis Admitting Diagnosis: Acute respiratory failure with hypoxia DS: Summary Time Spent with Patient Time attestation: Total time spent providing and/or coordinating discharge services: Discharge Plan Discharge Attending physician on discharge: Poonam Don Consulting providers: Ruben Burgos ; Diana Gonzalez ; Jaren Avery Discharging Clinician: Poonam Don Patient Disposition: Home, Self-Care Discharge Instructions: Per Dr. Avery please make a follow up appointment for next week to do therapeutic phlebotomy in the office. Office #[phone]. Patient to follow discharge care instruction from Dr. Gonzalez and follow-up is scheduled, patient to follow-up with his primary care doctor as soon as possible, patient is instructed if his symptoms gets worse call 911 and go to nearest emergency department Patient Instructions: Antibiotic Form, Furosemide (By mouth), Heart Failure (DC), Chest Pain (DC), How to Use an Incentive Spirometer (DC), Pain Management (DC), Using Oxygen at Home (ED), COPD (Chronic Obstructive Pulmonary Disease) (DC), Fall Prevention (DC), How Your Lungs Work (DC), Chronic Lung Disease and Infection Prevention (DC), Energy Conservation Techniques (DC) Stand Alone Forms: General Discharge Information Follow-up/Referrals: Diana Gonzalez MD [Physician] - Discharge Medications: New guaifenesin [Mucus Relief ER] 600 mg Tablet Extended Release 12hr 600 mg PO Q12HR Qty: 30 RF: 0 pantoprazole [Protonix] 20 mg Tablet,Delayed Release (Dr/Ec) 20 mg PO QAM Qty: 30 RF: 0 montelukast [Singulair] 10 mg Tablet 10 mg PO HS Qty: 30 RF: 0 fluticasone propionate 50 mcg/actuation [place],Suspension 1 spray intranasal Q12HR Qty: 1 RF: 0 loratadine 10 mg Tablet 10 mg PO QAM Qty: 30 RF: 0 prednisone 10 mg tablet 10 mg PO DAILY Qty: 63 RF: 0 furosemide 40 mg Tablet 40 mg PO DAILY Qty: 30 RF: 0 No Action No Home Medications RF: 0 Date of admission: 10/17/19 12:04 Primary Care Provider: PHYSICIAN,REPLANTING MACHINE OPERATOR Admitting Provider: Luis Desir Attending physician on admission: Luis Desir Condition: Serious Quality VTE Prophylaxis VTE prophylaxis: pharmacologic ordered
--- NOTE | 2019-10-30 18:58 | PC.NURSE ---
Spoke with patients , Daniella, and patient in regards to discharge orders. Patient and request that he be discharged tomorrow morning instead of this evening due to the timing of discharge. Spoke with Dr. Don who stated this was okay. Called back and notified her that patient would be discharged in the morning and I would have prescriptions called into the pharmacy that she could product picker in the morning. Dr. Don then called back and stated that patient cannot be discharged at this time. He stated he spoke with Dr. Gonzalez who stated patient is on too high of a steroid dose to be discharged right now. He asked me to cancel the discharge. However, I had already discussed with patient and that they would be going home in the morning and the paperwork had already been started and prescriptions called into the pharmacy. I requested that Dr. Don come explain to the patient that he would not be leaving in the morning. Patient has already been agitated about leaving today and feels as though we have been giving him the run around. Dr. Don stated he believes Lisa would be in to discuss this with patient.
[2019-10-30] MEDS: MONTELUKAST SODIUM 10 MG TABLET PO (20:01)
[2019-10-30] MEDS: methylPREDNISolone SOD SUCC 40 MG VIAL IV PUSH (23:55)
[2019-10-31] VITALS: BP 114/73; PULSE 83; PULSE 86; RESP 18; TEMP 36.7; O2SAT 91
[2019-10-31 04:00] VITALS: BP 113/67; PULSE 78; RESP 20; TEMP 36.1; O2SAT 91
[2019-10-31] MEDS: methylPREDNISolone SOD SUCC 40 MG VIAL IV PUSH ×2 (06:43→13:33)
[2019-10-31 08:00] VITALS: PULSE 86
[2019-10-31] MEDS: PANTOPRAZOLE SOD SESQUIHYDRATE 20 MG TAB PO (08:04)
[2019-10-31] MEDS: SODIUM CHLORIDE NASAL GEL 14.1 GM 1 APPLIC NASAL (08:04)
[2019-10-31] MEDS: FLUTICASONE PROPIONATE 0.05% NA SPR 16 GM BTL (*BKC) 1 SPRAY NASAL (08:04)
[2019-10-31] MEDS: LORATADINE 10 MG TABLET PO (08:04)
[2019-10-31] MEDS: FUROSEMIDE 40 MG TABLET PO (08:04)
[2019-10-31 10:00] VITALS: BP 118/64; PULSE 96; RESP 18; TEMP 36.5; O2SAT 94
[2019-10-31 12:00] VITALS: PULSE 96
--- NOTE | 2019-10-31 12:18 | PM.PNPUL ---
Progress Note: A&P Assessment and Plan (1) ILD (interstitial lung disease): Code(s): J84.9 - Interstitial pulmonary disease, unspecified Status: Acute Assessment and Plan: UIP/IPF is less likely given CTA features but still possible. Autoimmune induced ILD is still possible as is occupational exposure. Medication induced is less likely. Hypersensistivity Pneumonitis is possible but no persistent chronic exposure in history other than the one time of bird droppings about six years ago. - Can go home on oxygen oxymizer at 7 liters at rest and 10 liters on exertion, keeping oxygen > 92% at all times - polycythemia likely due to chronic hypoxemia with low EPO level; JAK2 panel is negative. He started phlebotomy 10/27. - CK normal, aldolase and Scl-70 pending - repeat HRCT with expiratory and prone imaging to help better classify ILD October 23 results above - UIP v NSIP.. - definitive diagnosis is only possible by VATS lung biopsy but he is no condition to have that currently - agree with oxygenation and diuretic management. - Will wean steroids - agree with continuing Lasix 40 mg daily - encouraged to do incentive spirometer Q2h while awake, working with PT/OT and up into chair bid (2) Pulmonary hypertension: Code(s): I27.20 - Pulmonary hypertension, unspecified Status: Acute Assessment and Plan: Secondary to chronic hypoxemia and ILD - agree with lasix 40 mg daily as maintence therapy - keep O2 sats > 92% at all times - patient is not a candidate for vasodilator therapy or phosodiesterase inhibitors (3) Acute on chronic respiratory failure with hypoxemia: Code(s): J96.21 - Acute and chronic respiratory failure with hypoxia Status: Acute Assessment and Plan: This is likely the cause of his polycythemia but other patholigic causes are being rule out - important to keep O2 sats > 92% at all times (4) Epistaxis: Code(s): R04.0 - Epistaxis Status: Acute Assessment and Plan: - due to oxygen per nasal cannula - remains on face mask since October 25 when he had a huge nosebleed - petroleum jelly to nares bid - avoid all anticoagulants and nasal sprays, although he will need to be on baby asa for his erythrocytosis. Subjective Date/time seen: 10/31/19 12:18 This 73 yo man with ILD , acute hypoxmeic resp failure, polycythemia, says that he wants to go home today. He is not sleeping well in the hospital. shortly after 3 pm, he had a home O2 evaluation , and needs 7 L/min at rest, 10 L/min with exertion. Weaning steroids. Review of Systems Review of Systems: All systems reviewed & are unremarkable except as noted in HPI and below Constitutional: Constitutional: Reports fatigue and Reports weakness ENT: Reports nasal congestion (much less) and Reports nasal discharge (decreased) Cardiovascular: Cardiovascular: Denies chest pain and Reports leg edema (improved dramatically) Neurologic: Reports weakness Endocrine: Endocrine: Reports fatigue Exam Narrative: Exam Narrative: This 73 yo man has a zabrina complexion, improved. Const: General: no acute distress ( ) HENMT: General nose exam: Epistaxis present Eyes: General: appearance normal, both eyes and all related structures Neck: Neck: supple Resp: Auscultation: crackles (less prominent, 1/3 up both posterior lung ramos) bilateral Cardio: Rate: regular rate Rhythm: regular rhythm Heart sounds: S1 normal heart sound present and S2 normal heart sound present Skin: General skin exam: erythema Extrem: General: pedal edema present and clubbing Psych: Mental Status: mental status grossly normal Objective Data Vital Signs Vital Signs: V
--- NOTE | 2019-10-31 13:19 | PM.DS ---
DS: Admitting Diagnosis Admitting Diagnosis Admitting Diagnosis: Acute respiratory failure with hypoxia DS: Discharge Diagnosis Discharge Diagnosis (1) Acute respiratory failure with hypoxia: Code(s): J96.01 - Acute respiratory failure with hypoxia Status: Acute Assessment and Plan: 10/30/19 13:05 More likely acute on chronic respiratory failure. Pulmonology consulted and appreciate input. CTA chest with no pulmonary embolism but chronic diffuse bilateral lung disease and findings suggestive of pulmonary hypertension. Discussed with pulmonology over the weekend. Still requiring high-flow oxygen therapy but down to 40 L with FiO2 of 70%. Urine Histoplasma antigen and hypersensitivity pneumonitis panels pending. Will continue IV steroids and IV Lasix. Will leave IV ceftriaxone and azithromycin in place for now. Continue Symbicort and montelukast. Will need additional evaluation once more stable. Will continue to monitor. Wean oxygen as tolerated. Will add PT/OT to help with mobility. Date of Service: 10/22/2019. Admitted with acute (probably acute on chronic) respiratory failure, chronic lung disease. Feeling a little bit better today. Unsure about shortness of breath but better than on admission. No chest pain or chest pressure. Does report cough has lessened with very little sputum production. Nasal congestion and drainage improved. No abdominal pain. No headache. Swelling in legs is gone. Patient is a 73-year-old male who presented emergency department with a complaint of shortness of breath and lower extremity swelling he was quite hypoxic and was saturating 83% on 4 L nasal cannula, patient is found to severe COPD interstitial lung disease and severe pulmonary hypertension patient is requiring 12 L of oxygen high-flow nasal cannula, and with slight exertion he desaturates, seen by Dr. Gonzalez patient is being treated with Lasix bronchodilator inhaled steroid, patient's symptoms are stable, patient is being diuresed however patient kidney function is getting dry we are holding patient's Lasix, chest x-ray showed some improvement in pulmanary edema, again patient's symptoms are stable presently plan is to wean the patient off high-flow oxygen before discharging home, patient erythrocytosis is seen by hematalogist suspect 2/2 hypoxemia or polycythemia vera recommending phlebotomy 500 cc, weekly this will be done as outpatient, today patient is feeling much better not a short of breath, on 10/25 communicated with contestant coordinator as patient requring more oxygen will add lasix 40mg PO daily, and start low sodium diet, will continue to monitor patient overall symptoms have improved he is still requiring less oxygen now on 8 L compared to 12 L initially will continue to wean the patient off high-flow oxygen, patient is seen by contestant coordinator and further recommendation to follow, Patient had an episode of epistaxis on 10/24 most like from irritation of nasal mucosa due NC, patient is on face mask now and will avoid anticoagulation. patient is still requring high flow 10l O2, on 10/27 D/W Dr. Avery and had phlebotomy 500cc was collected and will require weekly to keep his hemocrit clost to 45, today patient still requiring high-flow oxygen symptoms gets worse with exertion, patient wants to go home and considering palliative care we have discussed this with the [facility] manager further planning. Patient is currently on Ventimask and requiring to a L of oxygen, patient cannot be discharged on such high concentration of oxygen, will switch him over to nasal cannula and wean him off below 10 L to maintain his oxygen, if your able to maintain patient oxygen below 10 L begin possibly discharge the patient home with comfort care. (2) Chronic obstructive pulmonary disease: Qualifiers: COPD type: unspecified COPD Qualified Code(s): J44.9 - Chronic obstructive pulmonary disease, unspecified Code(s): J44.9 - Chronic obstructive
--- NOTE | 2019-10-31 13:51 | PC.NURSE ---
Dr. Don stated he has spoke with Dr. Gonzalez so there is no need to contact her in regards to discharge. Patient is okay to go home per her instructions he needs to follow up with her in 1 week.
== END 2019-10-31 14:11 | disposition home or self-care (01) | DRG 196 ==
LOC: ANHED 10:47 → ANHICU 14:55 → ANHIMU 10-19 00:02 → ANH2MED 10-25 12:35 → ANHICU 11-01 08:52 → ANHIMU 11-01 08:52
PROVIDERS: Family Medicine; Hospitalist; Internal Medicine Critical Care Medicine; Physician Assistant; Admitting Provider Internal Medicine; Emergency Provider Emergency Medicine; Visit Provider Family Medicine
DX: J84.9 Interstitial pulmonary disease, unspecified (principal); I50.33 Acute on chronic diastolic (congestive) heart failure; J96.21 Acute and chronic respiratory failure with hypoxia; J44.9 Chronic obstructive pulmonary disease, unspecified; D75.1 Secondary polycythemia; Z20.828 Contact with and (suspected) exposure to other viral communicable diseases; R55 Syncope and collapse; I27.20 Pulmonary hypertension, unspecified; I27.81 Cor pulmonale (chronic); R04.0 Epistaxis; J31.0 Chronic rhinitis; E83.42 Hypomagnesemia; E87.6 Hypokalemia; Z66 Do not resuscitate; Z77.090 Contact with and (suspected) exposure to asbestos
CPT/HCPCS: 36415; 36600; 71045; 71250; 71275; 76705; 80048; 80053; 81219; 81270; 81402; 81403; 81479; 82085; 82247; 82248; 82375; 82550; 82607; 82668; 82728; 82746; 82785; 82805; 83010; 83050; 83540; 83550; 83605; 83615; 83735; 83880; 84439; 84443; 84480; 84484; 85025; 85027; 85055; 86038; 86140; 86235; 86331; 86606; 86609; 87040; 87385; 87635; 93005; 93306; 93880; 93970; 94618; 94640; 94667; 94668; 97110; 97116; 97161; 97165; 97530; 97535; 99291; A9270; C9803; J0456; J0696; J1120; J1650; J1940; J2920; J2930; J3475; J7040; Q9967; U0003